=== PATIENT | female | born 1935 | race Caucasian/White ===

== ENCOUNTER 2019-05-09 07:01 | Inpatient (IN) ==
[2019-05-09] MEDS ORDERED: DILTIAZEM 25 MG/5 ML VIAL IV ONE (07:21)
--- NOTE | 2019-05-09 07:26 | Emergency Department Note ---
Weakness HPI - General Chief complaint: Weakness Stated complaint: weaknesss Time Seen by Provider: 05/09/19 07:16 Source: patient Mode of arrival: wheelchair Limitations: no limitations - History of Present Illness HPI Narrative: This is a dialysis patient who was on her way to dialysis and going up the car she just felt very weak and kind of slumped down. She is found to be in atrial fib with RVR ordered with a rate of 140-150. She was admitted to the hospital in [place] last week with similar symptoms. She denies chest pain or shortness of breath no nausea vomiting or abdominal pain. - Related Data Home Medications Medication Instructions Recorded Confirmed docusate sodium 100 mg capsule 100 mg PO BID 02/15/18 05/09/19 ranitidine HCl 300 mg tablet 150 mg PO BID tab 11/09/18 05/09/19 glimepiride 1 mg tablet 1 mg PO BID tab 03/21/19 05/09/19 sertraline 50 mg tablet 25 mg PO QDAY tab 05/04/19 05/09/19 Acetaminophen [Tylenol] 500 mg PO Q6HP PRN 05/05/19 05/09/19 Diltiazem [Cardizem Cd] 120 mg PO DAILY 05/05/19 05/09/19 Valsartan 320 mg PO QHS 05/05/19 05/09/19 Vit C/Vit E AC/Lut/Copper/Zinc 1 cap PO BID 05/05/19 05/09/19 [Preservision Lutein Softgel] Previous Rx's Medication Instructions Recorded doxazosin 8 mg tablet 8 mg PO QHS #30 tab 03/21/19 pen needle, diabetic 31 gauge x See Rx Instructions .ROUTE 04/06/1908/26" .MEDSUPPLY #100 each insulin detemir U-100 100 unit/mL 7 unit SUB-Q QAM #15 ml 04/18/19 (3 mL) subcutaneous pen gabapentin 100 mg capsule 100 mg PO QHS #90 cap 05/04/19 Ondansetron [Zofran ODT] 4 mg SL Q4-6HP PRN #10 tab 05/05/19 Allergies Allergy/AdvReac Type Severity Reaction Status Date / Time Amoxicillin Allergy Unknown Unknown Verified 05/09/19 07:05 acetazolamide Allergy decreases Verified 05/09/19 07:05 kidney fxn fentanyl AdvReac Hallucinati Verified 05/09/19 07:05 ng morphine Sulfate Allergy Unknown Unknown Uncoded 04/18/19 14:27 other Food Allergies Allergy Unknown Unknown Uncoded 04/18/19 14:27 Review of Systems All systems ED: reviewed and negative except as stated. 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) group home use of drug (Acute) Renal insufficiency (Acute 02/23/12) Rectal cancer (Acute) Proteinuria (Acute) Hypoalbuminemia (Acute) History of kidney stones (Acute 05/09/12) Hypopotassemia (Acute) Hypertension, renal disease (Chronic) Upper respiratory infection (Acute) Hypertension, essential (Acute 05/08/12) Hyperlipidemia (Acute 05/08/12) Homocystinemia (Acute) Disturbance of skin sensation (Acute) Diabetes mellitus, type II (Chronic) Chronic kidney disease, stage III (moderate) (Chronic 05/08/12) Vitamin D deficiency (Acute) Anemia, iron deficiency (Acute 07/31/12) Anemia in chronic kidney disease (Acute 05/08/12) Past Surgical History (Last Reviewed 04/18/19 @ 14:38 by Edis Sethi MD) History of hip surgery (Acute) History of hysterectomy (Acute) History of inguinal hernia repair (Acute) History of dilation and curettage (Acute) Family History (Last Reviewed 04/18/19 @ 14:38 by Edis Sethi MD) mother Malignant neoplasm of breast Medical history: Reports: renal disease - Social History smoking status: Never smoker Physical Exam Limitations: no limitations General appearance: alert Head: atraumatic Eye: Present: normal appearance ENT: Present: normal exam Neck: Present: normal inspection Chest: Present: normal inspection Respiratory: Present: rales/crackles Cardiovascular: Present: tachycardia, normal heart sounds Abdominal: Present: soft. Absent: distention, tenderness Extremities: Absent: pedal edema, pretibial edema Neurological: Present: alert Psychiatric: Present: normal affect Skin: Present: warm, dry Course Vital Signs Temperature 96.3 F L 05/09/19 07:01 Pulse Rate 143 H 05/09/19 07:01 Respiratory Rate 18 05/09/19 07:01 Blood Pressure 153/72 05/09/19 07:01 Pulse Oximetry (%) 99 05/09/19 07:01 Temperature 96.3 F L 05/09/19 07:01 Pulse Rate 92 H 05/09/19 08:01 Respiratory Rate 18 05/09/19 08:01 Blood Pressure 137/76 05/09/19 08:01 Pulse Oximetry (%) 96 05/09/19 08:01 Weakness - MDM Narrative Medical decision making narrative: This patient will be admitted to the hospital for atrial fibrillation are. I have spoken with the meat service team member but I am waiting to speak to the hospitalist. We did start diltiazem and her heart rate has come down some. - Lab Data Lab results reviewed: Yes I reviewed the patient's lab results. Result diagrams: 05/09/19 07:18 05/09/19 07:18 Lab Results 05/09/19 05/09/19 05/09/19 Range/Units 07:18 07:18 07:18 WBC 9.8 (4.5-11.0) K/mcL RBC 2.82 L (4.00-5.20) M/mcL Hgb 7.9 L (12.0-15.0) g/dL Hct 24.7 L (36.0-48.0) % POC Hct 23.0 L (36.0-48.0) % MCV 87.5 (80.0-100.0) fL MCH 28.0 (26.0-34.0) pg MCHC 32.0 (31.0-36.0) g/dL RDW 16.9 H (11.5-14.5) % Plt Count 217 (140-440) K/mcL MPV 7.8 (7.4-10.4) fL Gran % 70.3 (38.0-78.0) % Lymph % (Auto) 21.1 (15.5-49.0) % [place] % (Auto) 6.4 (1.0-12.0) % Eos % (Auto) 1.9 (0.0-7.0) % Baso % (Auto) 0.3 (0.0-2.0) % Gran # 6.9 (1.8-8.0) K/mcL Lymph # (Auto) 2.1 (1.5-4.8) K/mcL [place] # (Auto) 0.6 (0.1-0.9) K/mcL Eos # (Auto) 0.2 (0.0-0.7) K/mcL Baso # (Auto) 0 (0.0-0.3) K/mcL POC Sodium 137 (133-145) mmol/L Sodium 139 (133-145) mmol/L POC Potassium 3.5 (3.3-5.1) mmol/L Potassium 3.6 (3.3-5.1) mmol/L POC Chloride 101 (96-108) mmol/L Chloride 97 (96-108) mmol/L Carbon Dioxide 22 (22-30) mmol/L POC Total CO2 24 (22-30) mmol/L Anion Gap 20.0 H (8-16) POC BUN 23 (8-23) mg/dl BUN 25 H (8-23) mg/dl Creatinine 4.2 H (0.6-1.1) mg/dl POC Creatinine 4.6 H (0.6-1.1) mg/dl GFR Calculation 9 Glucose 179 H (70-105) mg/dL POC Glucose 175 H (70-105) mg/dL Calcium 8.8 (8.6-10.4) mg/dl POC WB Ioniz Calcium 1.06 L (1.16-1.32) mmol/L Total Bilirubin 0.3 (0.0-1.0) mg/dL AST 20 (0-37) U/l ALT 10 (0-40) U/l Alkaline Phosphatase 74 (39-117) U/L Troponin T 0.07 H* (0-0.03) ng/ml Total Protein 6.4 (5.9-8.4) gm/dL Albumin 3.4 (3.2-5.2) gm/dL Globulin 3.0 (2.2-3.7) gm/dL Albumin/Globulin Ratio 1.1 (1.0-2.3) Urine Color Urine Appearance Urine pH (5.0-9.0) Ur Specific [place] (1.000-1.035) Urine Protein (NEG) mg/dL Urine Glucose (UA) (NEG) mg/dL Urine Ketones (NEG) mg/dL Urine Occult Blood (<0.03) mg/dL Urine Nitrate (NEG) Urine Bilirubin (NEG) mg/dL Urine Urobilinogen (NEG) mg/dL Ur Leukocyte Esterase (NEG) /uL Urine RBC (0-1) /hpf Urine WBC (0-4) /hpf Ur Squamous Epith Cells (0-4) /hpf Ur Transition Epith Cell (0-2) /hpf Urine Bacteria (0) /hpf Hyaline Casts (0-2) /lpf Urine Mucus (0) /hpf Ur Culture Indicated? 05/09/19 Range/Units 07:57 WBC (4.5-11.0) K/mcL RBC (4.00-5.20) M/mcL Hgb (12.0-15.0) g/dL Hct (36.0-48.0) % POC Hct (36.0-48.0) % MCV (80.0-100.0) fL MCH (26.0-34.0) pg MCHC (31.0-36.0) g/dL RDW (11.5-14.5) % Plt Count (140-440) K/mcL MPV (7.4-10.4) fL Gran % (38.0-78.0) % Lymph % (Auto) (15.5-49.0) % [place] % (Auto) (1.0-12.0) % Eos % (Auto) (0.0-7.0) % Baso % (Auto) (0.0-2.0) % Gran # (1.8-8.0) K/mcL Lymph # (Auto) (1.5-4.8) K/mcL [place] # (Auto) (0.1-0.9) K/mcL Eos # (Auto) (0.0-0.7) K/mcL Baso # (Auto) (0.0-0.3) K/mcL POC Sodium (133-145) mmol/L Sodium (133-145) mmol/L POC Potassium (3.3-5.1) mmol/L Potassium (3.3-5.1) mmol/L POC Chloride (96-108) mmol/L Chloride (96-108) mmol/L Carbon Dioxide (22-30) mmol/L POC Total CO2 (22-30) mmol/L Anion Gap (8-16) POC BUN (8-23) mg/dl BUN (8-23) mg/dl Creatinine (0.6-1.1) mg/dl POC Creatinine (0.6-1.1) mg/dl GFR Calculation Glucose (70-105) mg/dL POC Glucose (70-105) mg/dL Calcium (8.6-10.4) mg/dl POC WB Ioniz Calcium (1.16-1.32) mmol/L Total Bilirubin (0.0-1.0) mg/dL AST (0-37) U/l ALT (0-40) U/l Alkaline Phosphatase (39-117) U/L Troponin T (0-0.03) ng/ml Total Protein (5.9-8.4) gm/dL Albumin (3.2-5.2) gm/dL Globulin (2.2-3.7) gm/dL Albumin/Globulin Ratio (1.0-2.3) Urine Color Yellow Urine Appearance Clear Urine pH 7.0 (5.0-9.0) Ur Specific [place] 1.013 (1.000-1.035) Urine Protein >=500 A (NEG) mg/dL Urine Glucose (UA) 50 A (NEG) mg/dL Urine Ketones 5/tr A (NEG) mg/dL Urine Occult Blood Neg (<0.03) mg/dL Urine Nitrate Neg (NEG) Urine Bilirubin Neg (NEG) mg/dL Urine Urobilinogen Neg (NEG) mg/dL Ur Leukocyte Esterase Neg (NEG) /uL Urine RBC 1 (0-1) /hpf Urine WBC 9 H (0-4) /hpf Ur Squamous Epith Cells 0 (0-4) /hpf Ur Transition Epith Cell < 1 (0-2) /hpf Urine Bacteria 0 (0) /hpf Hyaline Casts 3 H (0-2) /lpf Urine Mucus Few (0) /hpf Ur Culture Indicated? No Disposition Pt seen by [facility] ROOM CASHIER/PA only: No Clinical Impression: Atrial fibrillation with RVR Disposition: Xfer As Inpt ([facility]) Condition: Good Referrals: Rubina White MD [Primary Care Provider] - Time of Disposition: 09:03
[2019-05-09 07:27] LABS: POC Blood Urea Nitrogen 23 mg/dl (8-23); POC CO2 24 mmol/L (22-30); POC Calcium, Ionized 1.06 mmol/L (1.16-1.32); POC Chloride 101 mmol/L (96-108); POC Creatinine 4.6 mg/dl (0.6-1.1); POC Glucose, Random 175 mg/dL (70-105); POC Potassium 3.5 mmol/L (3.3-5.1); POC Sodium 137 mmol/L (133-145)
[2019-05-09] MEDS ORDERED: DILTIAZEM 125 MG in DEXTROSE 5% IN WATER 100 ML IV SCH (07:30)
[2019-05-09 07:46] LABS: Basophils # (Auto) 0 K/mcL (0.0-0.3); Basophils % (Auto) 0.3 % (0.0-2.0); Eosinophils # (Auto) 0.2 K/mcL (0.0-0.7); Eosinophils % (Auto) 1.9 % (0.0-7.0); Granulocytes % (Auto) 70.3 % (38.0-78.0); Hematocrit 24.7 % (36.0-48.0); Hemoglobin 7.9 g/dL (12.0-15.0); Lymphocytes # (Auto) 2.1 K/mcL (1.5-4.8); Lymphocytes % (Auto) 21.1 % (15.5-49.0); Mean Cell Volume 87.5 fL (80.0-100.0); Mean Platelet Volume 7.8 fL (7.4-10.4); Monocytes # (Auto) 0.6 K/mcL (0.1-0.9); Monocytes % (Auto) 6.4 % (1.0-12.0); Platelet Count 217 K/mcL (140-440); RBC 2.82 M/mcL (4.00-5.20); Red Cell Distribution Width 16.9 % (11.5-14.5); WBC 9.8 K/mcL (4.5-11.0)
[2019-05-09 08:10] LABS: ALT/SGPT 10 U/l (0-40); AST/SGOT 20 U/l (0-37); Albumin 3.4 gm/dL (3.2-5.2); Albumin/Globulin Ratio 1.1 (1.0-2.3); Alkaline Phosphatase 74 U/L (39-117); Bilirubin,Total 0.3 mg/dL (0.0-1.0); Blood Urea Nitrogen 25 mg/dl (8-23); Calcium 8.8 mg/dl (8.6-10.4); Carbon Dioxide 22 mmol/L (22-30); Chloride 97 mmol/L (96-108); Glomerular Filtration Rate 9; Glucose 179 mg/dL (70-105)
[2019-05-09 08:43] LABS: Appearance,Urine CLEAR; Bacteria,Urine 0 /hpf (0); Bilirubin,Urine NEG (NEG); Color,Urine YELLOW; Culture Indicated,Urine NO; Glucose,Urine (UA) 50 mg/dL (NEG); Ketones,Urine 5/TR mg/dL (NEG); Leukocyte Esterase,Urine NEG /uL (NEG); Mucus,Urine FEW /hpf (0); Nitrate,Urine NEG (NEG); Protein,Urine >=500 mg/dL (NEG); Specific Gravity,Urine 1.013 (1.000-1.035); Urine Blood NEG mg/dL (<0.03); Urine Hyaline Cast 3 /lpf (0-2); Urine RBC 1 /hpf (0-1); Urine Squamous Epithelial Cell 0 /hpf (0-4); Urine Transitional Epi Cells < 1 /hpf (0-2); Urine WBC 9 /hpf (0-4); Urobilinogen,Urine NEG (NEG)
[2019-05-09] MEDS ORDERED: POTASSIUM CHLORIDE 20 MEQ PACKET PO PRN (09:19)
[2019-05-09] MEDS ORDERED: ACETAMINOPHEN 325 MG TABLET PO PRN (09:19)
[2019-05-09] MEDS ORDERED: POLYETHYLENE GLYCOL 3350 17 GM PACKET PO PRN (09:19)
[2019-05-09] MEDS ORDERED: DEXTROSE 31 GM ORAL.SUSP PO PRN (09:19)
[2019-05-09] MEDS ORDERED: MAGNESIUM SULFATE 2 GM/50 ML BAG IV PRN (09:19)
[2019-05-09] MEDS ORDERED: ONDANSETRON 4 MG/2 ML VIAL IV PRN (09:19)
[2019-05-09] MEDS ORDERED: DEXTROSE 50% 50 ML VIAL IV PRN (09:19)
--- NOTE | 2019-05-09 10:06 | Nephrology Consult Note ---
History of Present Illness - Reason for Consult Patient information: Note initiated : 05/09/19 at 10:04 am Patient: Elvia Garcia a 84 y/o F admitted on 05/09/19 for Weakness. Consult date: 05/09/19 end stage renal disease Requesting physician: Jamel Donovan - Chief Complaint Weakness - History of Present Illness Elvia Garcia is an 84-year-old female with end stage renal disease on chronic hemodialysis presented to [facility] ED for weakness and admitted to on 05/09/19 for atrial fibrillation with RVR. She felt very weak on her way to dialysis and slumped down. She is found to be in atrial fibrillation with RVR with a rate of 140-150. She was already converted to sinus rhythm at the time of my evaluation in ICU. She had difficulty with history. Her daughter was at bedside and helped. 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) [facility] use of drug (Acute) Renal insufficiency (Acute 02/23/12) Rectal cancer (Acute) Proteinuria (Acute) Hypoalbuminemia (Acute) History of kidney stones (Acute 05/09/12) Hypopotassemia (Acute) Hypertension, renal disease (Chronic) Upper respiratory infection (Acute) Hypertension, essential (Acute 05/08/12) Hyperlipidemia (Acute 05/08/12) Homocystinemia (Acute) Disturbance of skin sensation (Acute) Diabetes mellitus, type II (Chronic) Chronic kidney disease, stage III (moderate) (Chronic 05/08/12) Vitamin D deficiency (Acute) Anemia, iron deficiency (Acute 07/31/12) Anemia in chronic kidney disease (Acute 05/08/12) Past surgical history: Past Surgical History (Last Reviewed 04/18/19 @ 14:38 by Edis Sethi MD) History of hip surgery (Acute) History of hysterectomy (Acute) History of inguinal hernia repair (Acute) History of dilation and curettage (Acute) Past family history: Family History (Last Reviewed 04/18/19 @ 14:38 by Edis Sethi MD) mother Malignant neoplasm of breast Past social history: Social History (Updated 04/18/19 @ 18:56 by Edis Sethi MD) marital status: occupational status: retired occupation: teacher other: 3 daughters 1 son, who at the age of 47 following MVA,he had aids smoking status: Never smoker alcohol intake frequency: does not drink Medications and Allergies Home Medications Medication Instructions Recorded Confirmed Type docusate sodium 100 mg capsule 100 mg PO BID 02/15/18 05/09/19 History ranitidine HCl 300 mg tablet 150 mg PO BID tab 11/09/18 05/09/19 History doxazosin 8 mg tablet 8 mg PO QHS #30 tab 03/21/19 05/09/19 Rx glimepiride 1 mg tablet 1 mg PO BID tab 03/21/19 05/09/19 History pen needle, diabetic 31 gauge x See Rx Instructions .ROUTE 04/06/19 05/09/19 Rx 3/16" .MEDSUPPLY #100 each insulin detemir U-100 100 unit/mL 7 unit SUB-Q QAM #15 ml 04/18/19 05/09/19 Rx (3 mL) subcutaneous pen gabapentin 100 mg capsule 100 mg PO QHS #90 cap 05/04/19 05/09/19 Rx sertraline 50 mg tablet 25 mg PO QDAY tab 05/04/19 05/09/19 History Acetaminophen [Tylenol] 500 mg PO Q6HP PRN 05/05/19 05/09/19 History Diltiazem [Cardizem Cd] 120 mg PO DAILY 05/05/19 05/09/19 History Ondansetron [Zofran ODT] 4 mg SL Q4-6HP PRN #10 tab 05/05/19 05/09/19 Rx Valsartan 320 mg PO QHS 05/05/19 05/09/19 History Vit C/Vit E AC/Lut/Copper/Zinc 1 cap PO BID 05/05/19 05/09/19 History [Preservision Lutein Softgel] Allergies Allergy/AdvReac Type Severity Reaction Status Date / Time Amoxicillin Allergy Unknown Unknown Verified 05/09/19 07:05 acetazolamide Allergy decreases Verified 05/09/19 07:05 kidney fxn fentanyl AdvReac Hallucinati Verified 05/09/19 07:05 ng morphine Sulfate Allergy Unknown Unknown Uncoded 04/18/19 14:27 other Food Allergies Allergy Unknown Unknown Uncoded 04/18/19 14:27 Exam - Vital Signs Vital signs: Temp Pulse Resp BP Pulse Ox 96.3 F L 92 H 20 125/87 96 05/09/19 07:01 05/09/19 08:01 05/09/19 09:01 05/09/19 09:16 05/09/19 08:01 - General Appearance General appearance: appears started age, chronically ill, fatigue EENT: mucous membranes moist Neck: supple Respiratory: clear Cardiology: no edema, regular rate, regular rhythm Gastrointestinal: no tenderness Integumentary: warm and dry Neurologic: no focal deficit Musculoskeletal: no deformities Psychiatric: mood/affect appropriate, cooperative Results - Lab Results 05/09/19 07:18 05/09/19 07:18 Most recent lab results Calcium 8.8 mg/dl (8.6-10.4) 05/09/19 07:18 Assessment and Plan (1) ESRD (end stage renal disease) on dialysis End stage renal disease on chronic hemodialysis. Chronic anemia due to ESRD, receiving Aranesp and IV iron in the dialysis unit. Recent left arm AV fistula. No significant fluid overload. Recurrent atrial fibrillation with RVR. Plan: Hemodialysis today for 3 hours without UF with low flows. Status: Chronic Priority: Medium
[2019-05-09] MEDS ORDERED: ACETAMINOPHEN 500 MG TABLET PO PRN (10:15)
[2019-05-09] MEDS ORDERED: DILTIAZEM 120 MG CAP.XL.24H PO SCH (10:15)
[2019-05-09] MEDS ORDERED: ONDANSETRON 4 MG ODT TABLET SL PRN (10:15)
--- NOTE | 2019-05-09 10:15 | Internal Med History&Physical ---
Medical - H&P: HPI Patient information: Note initiated : 05/09/19 at 10:12 am Service Date, if different from initiated Date: [] Patient: Elvia Garcia a 84 y/o F admitted on 05/09/19 for Weaknesss. Chief Complaint: [] Chief complaint: Lightheadedness dizziness History of present illness: Ms. Garcia is a 84 year old F with a history of ESRD on HD/A. fib and recent hospitalization at [facility] for A. fib RVR that spontaneously converted to sinus. Patient has been doing well since discharge until this morning while on the way to dialysis she was noted to be very weak lightheaded and dizzy and had a near syncopal episode. She was brought into the ER for evaluation and was found to be in A. fib RVR. Patient started on diltiazem drip. Nephrology was consulted for hemodialysis. Hospice service was consulted for evaluation. At the time of evaluation patient is alert and oriented. She is able to answer most questions. She denies any precipitating events. She has had a similar episode. She gets extreme symptomatic during atrial fibrillation episode. She denies fever, chills or [id number] medications. She however has been various antihypertensives currently being titrated by nephrology. She takes 120 diltiazem CD along with valsartan and doxazosin for hypertension. She is not on anticoagulation for CVA prophylaxis. Other than that patient denies diarrhea, dysuria, headache photophobia. 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 However, the is a monoclonal kappa spike seen on immunofixation. Also concern for late recurrence of colon cancer. Her M spike was only 0.6 g/dL, there is been a slowly rising trend in her CEA with a doubling over the past year but still less than 10, and her hemoglobin A1c is consistently been below 7% [facility] use of drug (Acute) petroleum terminal plant operator medication use NOS Renal insufficiency (Acute 02/23/12) Rectal cancer (Acute) Rectosigmoid Carcinoma Proteinuria (Acute) Hypoalbuminemia (Acute) History of kidney stones (Acute 05/09/12) Hypopotassemia (Acute) Hypertension, renal disease (Chronic) Upper respiratory infection (Acute) Hypertension, essential (Acute 05/08/12) Hyperlipidemia (Acute 05/08/12) Homocystinemia (Acute) Disturbance of skin sensation (Acute) numbness or tingling or other Diabetes mellitus, type II (Chronic) Chronic kidney disease, stage III (moderate) (Chronic 05/08/12) Vitamin D deficiency (Acute) Anemia, iron deficiency (Acute 07/31/12) Anemia in chronic kidney disease (Acute 05/08/12) Surgical History History of hip surgery (Acute) January 2012 Hip fracture for which she had a dynamic hip screw place by DR Ramirez History of hysterectomy (Acute) still has ovaries History of inguinal hernia repair (Acute) 2007 History of dilation and curettage (Acute) Family History mother Malignant neoplasm of breast Social History marital status: occupational status: retired occupation: teacher other: 3 daughters 1 son, who at the age of 47 following MVA,he had aids smoking status: Never smoker alcohol intake frequency: does not drink Medical - H&P: Meds Home Medications Medication Instructions Recorded Confirmed Type docusate sodium 100 mg capsule 100 mg PO BID 02/15/18 05/09/19 History ranitidine HCl 300 mg tablet 150 mg PO BID tab 11/09/18 05/09/19 History doxazosin 8 mg tablet 8 mg PO QHS #30 tab 03/21/19 05/09/19 Rx glimepiride 1 mg tablet 1 mg PO BID tab 03/21/19 05/09/19 History pen needle, diabetic 31 gauge x See Rx Instructions .ROUTE 04/06/19 05/09/19 Rx 3/16" .MEDSUPPLY #100 each insulin detemir U-100 100 unit/mL 7 unit SUB-Q QAM #15 ml 04/18/19 05/09/19 Rx (3 mL) subcutaneous pen gabapentin 100 mg capsule 100 mg PO QHS #90 cap 05/04/19 05/09/19 Rx sertraline 50 mg tablet 25 mg PO QDAY tab 05/04/19 05/09/19 History Acetaminophen [Tylenol] 500 mg PO Q6HP PRN 05/05/19 05/09/19 History Diltiazem [Cardizem Cd] 120 mg PO DAILY 05/05/19 05/09/19 History Ondansetron [Zofran ODT] 4 mg SL Q4-6HP PRN #10 tab 05/05/19 05/09/19 Rx Valsartan 320 mg PO QHS 05/05/19 05/09/19 History Vit C/Vit E AC/Lut/Copper/Zinc 1 cap PO BID 05/05/19 05/09/19 History [Preservision Lutein Softgel] Allergies Allergy/AdvReac Type Severity Reaction Status Date / Time Amoxicillin Allergy Unknown Unknown Verified 05/09/19 07:05 acetazolamide Allergy decreases Verified 05/09/19 07:05 kidney fxn fentanyl AdvReac Hallucinati Verified 05/09/19 07:05 ng other Food Allergies Allergy Unknown Unknown Uncoded 04/18/19 14:27 morphine Sulfate AdvReac Intermediate Hallucinati Uncoded 05/09/19 12:15 ng Medical - H&P: Exam - Constitutional Vitals: Temp Pulse Resp BP Pulse Ox 96.3 F L 92 H 20 125/87 96 05/09/19 07:01 05/09/19 08:01 05/09/19 09:01 05/09/19 09:16 05/09/19 08:01 Exam: Alert oriented Nonlabored breathing Head normocephalic Oral cavity dry No ear nose discharge Eye movement symmetrical S1-S2 irregular rhythm Diminished breath sounds bases Abdomen soft nontender, colostomy Lower extremity no cyanosis clubbing no joint swelling Skin no suspicious lesion Psych alert cooperative Neuro nonfocal Medical - H&P: Reslt - Labs CBC & Chem 7: 05/10/19 04:10 05/10/19 04:10 Labs: Short CBC 05/09/19 Range/Units 07:18 WBC 9.8 (4.5-11.0) K/mcL Hgb 7.9 L (12.0-15.0) g/dL Hct 24.7 L (36.0-48.0) % Plt Count 217 (140-440) K/mcL BMP 05/09/19 07:18 Sodium 139 Potassium 3.6 Chloride 97 Carbon Dioxide 22 BUN 25 H Creatinine 4.2 H Glucose 179 H Calcium 8.8 Cardiac Enzymes 05/09/19 Range/Units 07:18 Troponin T 0.07 H* (0-0.03) ng/ml Liver Function 05/09/19 Range/Units 07:18 Total Bilirubin 0.3 (0.0-1.0) mg/dL AST 20 (0-37) U/l ALT 10 (0-40) U/l Alkaline Phosphatase 74 (39-117) U/L Albumin 3.4 (3.2-5.2) gm/dL Urine 05/09/19 Range/Units 07:57 Urine Color Yellow Urine Appearance Clear Urine pH 7.0 (5.0-9.0) Ur Specific [place] 1.013 (1.000-1.035) Urine Protein >=500 A (NEG) mg/dL Urine Glucose (UA) 50 A (NEG) mg/dL Medical - H&P: A/P - Narrative A/P Narrative: * A. fib with RVR paroxysmal-continue rate control measures, continue diltiazem drip and transition to higher dose of diltiazem extended release. Echocardiogram * ESRD on hemodialysis -nephrology consult for HD * DM type II-basal prandial insulin * Hypertension-continue ARB/diltiazem/doxazosin * Anemia-secondary to ESRD. Management nephrology * Anxiety disorder continue sertraline * Hyperlipidemia continue statin * Neuropathy continue gabapentin * GERD continue PPI * Full code * Prophylaxis heparin Plan * Inpatient admission * Rate control measures * Echocardiogram * Pre-existing medical condition management on home meds * Nephrology consult for HD/anemia * PT OT nutrition support * Discharge planning
[2019-05-09] MEDS: DILTIAZEM 120 MG CAP.XL.24H PO SCH (11:00)
[2019-05-09] MEDS: THIAMINE 100 MG TABLET PO SCH (11:20)
[2019-05-09] MEDS: MULTIVIT,THER IRON,CA,FA & MIN 1 TABLET PO SCH (11:20)
[2019-05-09] MEDS: HEPARIN 5,000 UNIT/ML VIAL SQ SCH ×2 (11:21→20:52)
[2019-05-09] MEDS: DOCUSATE SODIUM 100 MG CAPSULE PO SCH ×2 (11:22→20:52)
[2019-05-09] MEDS: METOPROLOL TARTRATE 5 MG/5 ML VIAL IV SCH ×2 (11:22→17:30)
[2019-05-09] MEDS: INSULIN LISPRO 1 UNIT/0.01 ML UNIT SQ SCH ×3 (13:50→20:52)
[2019-05-09] MEDS ORDERED: METOPROLOL TARTRATE 5 MG/5 ML VIAL IV PRN (16:49)
[2019-05-09] MEDS: 0.9 % SODIUM CHLORIDE 10 ML SYRINGE IV SCH ×2 (17:24→20:53)
[2019-05-09] MEDS ORDERED: METOPROLOL TARTRATE 5 MG/5 ML VIAL IV SCH ×2 (17:30→17:45)
[2019-05-09] MEDS ORDERED: DILTIAZEM 125 MG in DEXTROSE 5% IN WATER 100 ML IV PRN (19:30)
[2019-05-09] MEDS: FAMOTIDINE 20 MG TABLET PO SCH (20:52)
[2019-05-09] MEDS ORDERED: DOXAZOSIN 4 MG TABLET PO SCH (21:00)
[2019-05-09] MEDS ORDERED: GABAPENTIN 100 MG CAPSULE PO SCH (21:00)
[2019-05-09] MEDS ORDERED: DOCUSATE SODIUM 100 MG CAPSULE PO SCH (21:00)
[2019-05-09] MEDS ORDERED: OLMESARTAN MEDOXOMIL 20 MG TABLET PO SCH (21:00)
[2019-05-09] MEDS ORDERED: MELATONIN 3 MG TABLET PO PRN (21:00)
[2019-05-09] MEDS ORDERED: SENNOSIDES/DOCUSATE SODIUM 1 TAB TABLET PO SCH (21:00)
[2019-05-10] MEDS: 0.9 % SODIUM CHLORIDE 10 ML SYRINGE IV SCH ×2 (05:50→12:14)
[2019-05-10 05:54] LABS: ALT/SGPT 9 U/l (0-40); AST/SGOT 20 U/l (0-37); Albumin/Globulin Ratio 1.2 (1.0-2.3); Alkaline Phosphatase 74 U/L (39-117); Bilirubin,Direct < 0.2 mg/dL (0.0-0.3); Bilirubin,Total 0.2 mg/dL (0.0-1.0); Carbon Dioxide 27 mmol/L (22-30); Chloride 98 mmol/L (96-108); Globulin 2.6 gm/dL (2.2-3.7); Glucose 118 mg/dL (70-105); Lactate Dehydrogenase 188 U/L (94-250); Phosphorous 3.8 mg/dL (2.7-4.5); Triglycerides 249 mg/dl (<150)
[2019-05-10 05:59] LABS: Blood Urea Nitrogen 14 mg/dl (8-23); Glomerular Filtration Rate 14; Hematocrit 20.4 % (36.0-48.0); Hemoglobin 6.6 g/dL (12.0-15.0); Mean Cell Volume 87.4 fL (80.0-100.0); Mean Corpuscular HGB Conc 32.3 g/dL (31.0-36.0); Mean Platelet Volume 7.8 fL (7.4-10.4); Platelet Count 193 K/mcL (140-440); RBC 2.33 M/mcL (4.00-5.20); Red Cell Distribution Width 16.7 % (11.5-14.5); WBC 6.2 K/mcL (4.5-11.0)
[2019-05-10 06:42] LABS: Eosinophils % (Manual) 4 % (0-7); Lymphocytes % 20 % (15-49); Monocytes % (Manual) 6 % (1-12); Platelet Estimate NORMAL (NORMAL); RBC Morphology NORMAL (NORMAL); Segmented Neutrophils % 70 % (38-78)
--- NOTE | 2019-05-10 07:30 | Nephrology Progress Note ---
Subjective Patient information: Note initiated : 05/10/19 at 7:28 am Patient: Elvia Garcia 84 y/o F admitted on 05/09/19 for Weaknesss. Chief Complaint: Weakness Pertinent ROS: Weakness No Gómez catheter No edema Objective - Vital Signs Vital signs: Vital Signs Temp Pulse Pulse Resp BP BP Pulse Ox 05/10/19 04:29 68 97 05/10/19 04:01 98.1 F 65 116/41 98 05/10/19 03:01 66 115/41 98 05/10/19 02:48 70 99 05/10/19 02:01 65 132/46 98 05/10/19 02:00 99 05/10/19 01:01 75 150/50 92 05/10/19 00:01 78 150/59 93 05/09/19 23:01 79 151/54 94 05/09/19 22:01 79 153/53 94 05/09/19 21:01 155/62 05/09/19 20:01 98.2 F 82 18 142/58 95 05/09/19 20:00 96 05/09/19 19:01 89 151/68 96 05/09/19 18:01 98.4 F 88 148/47 97 05/09/19 18:00 88 96 05/09/19 17:01 80 168/66 94 05/09/19 16:39 79 165/61 93 05/09/19 16:16 98.4 F 84 163/64 98 05/09/19 16:01 86 185/73 95 05/09/19 15:51 81 165/66 96 05/09/19 15:50 79 165/60 96 05/09/19 15:45 77 139/59 97 05/09/19 15:35 96.6 F L 75 139/59 05/09/19 15:31 78 141/62 96 05/09/19 15:25 76 141/62 05/09/19 15:16 85 154/50 97 05/09/19 15:14 84 154/50 05/09/19 15:01 85 163/58 97 05/09/19 14:56 90 163/58 05/09/19 14:46 81 159/74 96 05/09/19 14:39 81 159/74 05/09/19 14:31 80 163/73 96 05/09/19 14:25 89 163/73 05/09/19 14:16 78 150/67 95 05/09/19 14:15 88 20 97 05/09/19 14:12 81 150/67 05/09/19 14:10 80 95 05/09/19 14:01 80 156/65 94 05/09/19 13:57 80 156/66 05/09/19 13:46 75 158/59 95 05/09/19 13:41 77 158/59 05/09/19 13:31 77 158/61 94 05/09/19 13:25 74 158/75 05/09/19 13:16 82 181/72 96 05/09/19 13:10 80 181/72 05/09/19 13:01 83 177/65 97 05/09/19 13:00 83 177/65 05/09/19 12:46 77 147/55 97 05/09/19 12:40 98.6 F 83 145/55 05/09/19 12:31 82 159/57 96 05/09/19 12:16 80 167/68 96 05/09/19 12:01 80 173/60 98 05/09/19 11:46 86 150/64 96 05/09/19 11:31 81 150/85 96 05/09/19 11:16 74 164/52 99 05/09/19 11:15 75 96 05/09/19 11:00 74 141/51 95 05/09/19 10:46 73 104/82 97 05/09/19 10:31 76 146/55 95 05/09/19 10:16 82 155/55 96 05/09/19 10:01 81 151/63 96 05/09/19 09:46 87 142/53 96 05/09/19 09:36 150/67 05/09/19 09:26 125/87 05/09/19 09:17 98.2 F 88 20 150/67 96 05/09/19 09:16 125/87 05/09/19 09:01 20 109/56 05/09/19 08:46 14 135/68 05/09/19 08:31 17 124/48 05/09/19 08:16 21 126/105 05/09/19 08:01 92 H 18 137/76 96 05/09/19 07:52 130 H 16 144/81 97 Intake and Output 05/09/19 05/10/19 05/10/19 21:59 05:59 13:59 Intake Total 480 Output Total 250 Balance -250 480 Intake: Oral 480 Output: Void Amount 250 Hemodialysis UF 0 Other: Urine Appearance Cloudy Urine Color Dark Yellow Stool Color Brown Stool Consistency Liquid Weight 119 lb 8 oz Intake & Output: Intake & Output 05/09/19 05/10/19 05/10/19 21:59 05:59 13:59 Intake Total 480 Output Total 250 Balance -250 480 Weight 119 lb 8 oz Intake: Oral 480 Output: Void Amount 250 Hemodialysis UF 0 Other: Urine Appearance Cloudy Urine Color Dark Yellow Stool Color Brown Stool Consistency Liquid - General Appearance General appearance: appears started age, chronically ill, fatigue, frail EENT: mucous membranes moist Respiratory: clear Cardiology: no edema, regular rate, regular rhythm Gastrointestinal: no tenderness Integumentary: warm and dry Neurologic: no focal deficit Musculoskeletal: no deformities Psychiatric: mood/affect appropriate, cooperative - Lab 05/10/19 04:10 05/10/19 04:10 Most recent lab results Calcium 8.0 mg/dl (8.6-10.4) L 05/10/19 04:10 Phosphorus 3.8 mg/dL (2.7-4.5) 05/10/19 04:10 Magnesium 2.0 mg/dL (1.6-2.5) 05/10/19 04:10 Assessment and Plan (1) ESRD (end stage renal disease) on dialysis Elvia Garcia is an 84-year-old female with end stage renal disease on chronic hemodialysis presented to [facility] ED for weakness and admitted to on 05/09/19 for atrial fibrillation with RVR. She felt very weak on her way to dialysis and slumped down. She is found to be in atrial fibrillation with RVR with a rate of 140-150. She was already converted to sinus rhythm at the time of my evaluation in ICU. She had difficulty with history. Her daughter was at bedside and helped. End stage renal disease on chronic hemodialysis, started this month. Chronic anemia due to ESRD, receiving Aranesp and IV iron in the dialysis unit. Recent left arm AV fistula. Progress: Last hemodialysis on 05/09/19 for 3 hours without UF with low flows. Recurrent atrial fibrillation with RVR, converted to sinus rhythm. No significant fluid overload. Plan: Next hemodialysis on Tuesday or Tuesday as inpatient or outpatient. Status: Chronic Priority: Medium (2) Anemia in ESRD (end-stage renal disease) Acute on chronic anemia due to ESRD, receiving Aranesp and IV iron in the dialysis unit. Recommendations: 1 unit PRBC for Hb <7.0 Furosemide 40 mg IV once for fluid overload, may repeat if needed. Status: Acute Priority: High
[2019-05-10] MEDS ORDERED: FUROSEMIDE 40 MG/4 ML VIAL IV ONE (07:59)
[2019-05-10] MEDS ORDERED: 0.9 % SODIUM CHLORIDE 250 ML IV SCH (08:00)
[2019-05-10] MEDS ORDERED: SERTRALINE 50 MG TABLET PO SCH (09:00)
[2019-05-10] MEDS ORDERED: INSULIN GLARGINE, HUMAN 1 UNIT/0.01 ML SQ SCH (09:00)
[2019-05-10] MEDS: INSULIN LISPRO 1 UNIT/0.01 ML UNIT SQ SCH ×2 (09:27→12:13)
[2019-05-10] MEDS: HEPARIN 5,000 UNIT/ML VIAL SQ SCH (09:27)
[2019-05-10] MEDS: DILTIAZEM 120 MG CAP.XL.24H PO SCH (09:28)
[2019-05-10] MEDS: DOCUSATE SODIUM 100 MG CAPSULE PO SCH (09:28)
[2019-05-10] MEDS: THIAMINE 100 MG TABLET PO SCH (09:28)
[2019-05-10] MEDS: MULTIVIT,THER IRON,CA,FA & MIN 1 TABLET PO SCH (09:37)
[2019-05-10] MEDS: FAMOTIDINE 20 MG TABLET PO SCH (09:40)
--- NOTE | 2019-05-10 14:33 | Discharge Summary ---
Medical - DS: Prov Patient information: Note initiated : 05/10/19 at 2:31 pm Service Date, if different from initiated Date: [] Patient: Elvia Garcia 84 y/o F admitted on 05/09/19 for Weaknesss. Chief Complaint: [] Date of admission: 05/09/19 09:17 Discharge date: 05/10/19 Primary care physician: Rubina White Consults: 05/09/19 Consult to Physician [CONS] Stat Comment: Consulting Provider: John Rivera Reason For Exam: Physician to Consult Consult to Physician [CONS] Stat Comment: Consulting Provider: Christine Iverson Reason For Exam: Physician to Consult Medical - DS: Meds - Discharge Medications Active and Home Medications: Home Medications docusate sodium 100 mg capsule 100 mg PO BID 02/15/18 [History Confirmed 05/09/19 Last Taken Unknown] ranitidine HCl 300 mg tablet 150 mg PO BID tab 11/09/18 [History Confirmed 05/09/19 Last Taken Unknown] doxazosin 8 mg tablet 8 mg PO QHS #30 tab 03/21/19 [Rx Confirmed 05/09/19 Last Taken Unknown] glimepiride 1 mg tablet 1 mg PO BID tab 03/21/19 [History Confirmed 05/09/19 Last Taken Unknown] pen needle, diabetic 31 gauge x 3/16" See Rx Instructions .ROUTE .MEDSUPPLY #100 each 04/06/19 [Rx Confirmed 05/09/19 Last Taken Unknown] insulin detemir U-100 100 unit/mL (3 mL) subcutaneous pen 7 unit SUB-Q QAM #15 ml 04/18/19 [Rx Confirmed 05/09/19 Last Taken Unknown] gabapentin 100 mg capsule 100 mg PO QHS #90 cap 05/04/19 [Rx Confirmed 05/09/19 Last Taken Unknown] sertraline 50 mg tablet 25 mg PO QDAY tab 05/04/19 [History Confirmed 05/09/19 Last Taken Unknown] Acetaminophen [Tylenol] 500 mg PO Q6HP PRN 05/05/19 [History Confirmed 05/09/19 Last Taken Unknown] Diltiazem [Cardizem Cd] 120 mg PO DAILY 05/05/19 [History Confirmed 05/09/19 Last Taken Unknown] Ondansetron [Zofran ODT] 4 mg SL Q4-6HP PRN #10 tab 05/05/19 [Rx Confirmed 05/09/19 Last Taken Unknown] Valsartan 320 mg PO QHS 05/05/19 [History Confirmed 05/09/19 Last Taken Unknown] Vit C/Vit E AC/Lut/Copper/Zinc [Preservision Lutein Softgel] 1 cap PO BID 05/05/19 [History Confirmed 05/09/19 Last Taken Unknown] Medical - DS: Hosp Hospital Course: Discharge diagnosis * A. fib with RVR paroxysmal-patient rapidly improved. Spontaneously converted to sinus without any further paroxysms. On home dose diltiazem. Chads score mandates anticoagulation. Patient would like to discuss with primary care physician. Schedule outpatient cardiology follow-up. Echo results pending. Fax copy of echocardiogram to PCP * ESRD -status post HD per nephrology * DM type II-stable on basal prandial insulin * Hypertension-continue ARB/diltiazem/doxazosin as per nephrology * Anemia-secondary to ESRD. Status post PRBC transfusion as per nephrology * Anxiety disorder continue sertraline * Hyperlipidemia continue statin * Colostomy care * Neuropathy continue gabapentin * GERD continue PPI Brief hospital course Ms. Garcia is a 84 year old F with a history of ESRD on HD/A. fib and recent h ospitalization at [facility] for A. fib RVR that spontaneously converted to sinus. Patient has been doing well since discharge until this morning while on the way to dialysis she was noted to be very weak lightheaded and dizzy and had a near syncopal episode. She was brought into the ER for evaluation and was found to be in A. fib RVR. Patient started on diltiazem drip. Nephrology was consulted for hemodialysis. Hospice service was consulted for evaluation. At the time of evaluation patient is alert and oriented. She is able to answer most questions. She denies any precipitating events. She has had a similar episode. She gets extreme symptomatic during atrial fibrillation episode. She denies fever, chills or [id number] medications. She however has been various antihypertensives currently being titrated by nephrology. She takes 120 diltiazem CD along with valsartan and doxazosin for hypertension. She is not on anticoagulation for CVA prophylaxis. 05/10.-Patient doing well. Status post PRBC transfusion as per nephrology recommendations. Conversion to sinus with no further episodes of atrial fibrillation over the last 16 hours. Feels at baseline. Discharging today with advised to follow-up with nephrology for continued hemodialysis. Continue home dose Cardizem. If patient experiences paroxysmal A fibrillation she would be a candidate for anticoagulation based on chads score 3. At this time patient unwilling to initiate anticoagulation. Further discussions per primary care physician. Patient will need outpatient follow-up with cardiology. Discharge instructions below Discharge diagnosis: . - Time Spent with Patient Total time spent providing and/or coordinating discharge services: Greater than 30 minutes Medical - DS: Exam - Constitutional Vitals: Vital Signs Temp Pulse Resp BP Pulse Ox 05/10/19 04:29 68 97 05/10/19 04:01 98.1 F 65 116/41 98 05/10/19 03:01 66 115/41 98 05/10/19 02:48 70 99 05/10/19 02:01 65 132/46 98 05/10/19 02:00 99 05/10/19 01:01 75 150/50 92 05/10/19 00:01 78 150/59 93 05/09/19 23:01 79 151/54 94 05/09/19 22:01 79 153/53 94 05/09/19 21:01 155/62 05/09/19 20:01 98.2 F 82 18 142/58 95 05/09/19 20:00 96 05/09/19 19:01 89 151/68 96 05/09/19 18:01 98.4 F 88 148/47 97 05/09/19 18:00 88 96 05/09/19 17:01 80 168/66 94 05/09/19 16:39 79 165/61 93 05/09/19 16:16 98.4 F 84 163/64 98 05/09/19 16:01 86 185/73 95 05/09/19 15:51 81 165/66 96 05/09/19 15:50 79 165/60 96 05/09/19 15:45 77 139/59 97 05/09/19 15:35 96.6 F L 75 139/59 05/09/19 15:31 78 141/62 96 05/09/19 15:25 76 141/62 05/09/19 15:16 85 154/50 97 05/09/19 15:14 84 154/50 05/09/19 15:01 85 163/58 97 05/09/19 14:56 90 163/58 05/09/19 14:46 81 159/74 96 05/09/19 14:39 81 159/74 Intake and Output 05/10/19 05/10/19 05/10/19 05:59 13:59 21:59 Intake Total 480 Balance 480 Intake: Oral 480 Medical - DS: Data Labs on day of discharge: Labs from last 24 hours 05/10/19 05/10/19 04:10 04:10 WBC 6.2 RBC 2.33 L Hgb 6.6 L* Hct 20.4 L* MCV 87.4 MCH 28.2 MCHC 32.3 RDW 16.7 H Plt Count 193 MPV 7.8 Total Counted 100 Seg Neutrophils % 70 Band Neutrophils % Not Reportable Lymphocytes % 20 Monocytes % (Manual) 6 Eosinophils % (Manual) 4 Platelet Estimate Normal RBC Morphology Normal Sodium 137 Potassium 3.7 Chloride 98 Carbon Dioxide 27 Anion Gap 12.0 BUN 14 Creatinine 3.0 H GFR Calculation 14 Glucose 118 H Uric Acid 3.0 Calcium 8.0 L Phosphorus 3.8 Magnesium 2.0 Total Bilirubin 0.2 Direct Bilirubin < 0.2 GGT 14 AST 20 ALT 9 Alkaline Phosphatase 74 Lactate Dehydrogenase 188 Total Protein 5.6 L Albumin 3.0 L Globulin 2.6 Albumin/Globulin Ratio 1.2 Triglycerides 249 H Medical - DS: A/P - Patient/Caregiver Discharge Instructions Activity: increase activity as tolerated Diet: Renal/Consistent Carbs Additional Instructions: Follow-up PCP in 5 to 7 days Recommend PCP to coordinate outpatient cardiology follow-up. Recommend PCP to discuss anticoagulation for CVA prophylaxis in light of paroxysmal A. fib. Chads score 3 Return to ER if lightheadedness dizziness noted Follow-up with nephrology for hemodialysis Continue colostomy care - Follow up Plan Follow up with: Rubina White MD [Primary Care Provider] - (Due to the holiday; this appointment could not be scheduled at discharge. Please call to schedule a post hospital appointment at your earliest convenience.) Christine Iverson MD [Physician] - (Continue with your current dialysis schedule.) Disposition: Home, Self-Care Care Plan Goals: This discharge packet is provided to you to help keep you informed about your care. We want to ensure you get everything you need when you go home. You will also be receiving a call from us in a few days to follow up with you and see how you are doing since your discharge. This gives us a chance to listen to any concerns you maybe experiencing since you were discharged or any additional needs you may have, as well as providing us feedback on your care experience. We strive to always provide excellent care and thank you for your feedback and for choosing [facility]. Prognosis: Good Rehab Potential: Fair I certify that the patient requires SNF services: No Overall status at discharge: patient is progressing back to baseline Medical - DS: Qual - VTE Deep Vein Thrombosis/Pulmonary Embolism Present on Admission: No
== END 2019-05-10 15:15 | disposition home or self-care (01) | DRG 308 ==
LOC: ED 07:01 → ICU 09:17
PROVIDERS: ADMIT Internal Medicine; ATTEND Internal Medicine

== ENCOUNTER 2019-11-02 20:00 | Inpatient (IN) ==
--- NOTE | 2019-11-02 20:09 | Internal Med History&Physical ---
Medical - H&P: [facility] Patient information: Note initiated : 11/02/19 at 8:05 pm Service Date, if different from initiated Date: [] Patient: Elvia Garcia a 84 y/o F admitted on for Dialysis. Chief Complaint: [] History of present illness: Ms. 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 She had a history of hypertension followed by hypotension. During his episode she has poor responsiveness. Per the family this seems to be the reason why the MRI was ordered. MRI revealed a left hemispheric stroke frontoparietal region. Timing of stroke is uncertain although she was seen in [facility] ED on the for elevated blood pressure. Did not present up with any neurological findings at that time it seems. Patient denies any focal numbness or weakness or speech difficulties. No chest pain shortness of breath fever chills. She was transferred over to [facility] with the ability to have dialysis. Patient very pleasant female. I did discuss with her past notes of atrial fibrillation and likely need for anticoagulation. She has no acute complaints. Review of Systems: Pertinent positives above. Denies headache/fever/chills/nausea/vomiting/chest or abdominal pain/cough/dyspnea/diarrhea. Remaining 10 point review of system reviewed negative Medical - H&P: [facility] [place] Medical history: Medical History (Last Reviewed 04/18/19 @ 14:38 by Edis Sethi MD) Anemia due to stage 5 chronic kidney disease treated with darbepoetin (Chronic) Secondary hyperparathyroidism of renal origin (Chronic) Anemia due to chronic kidney disease (Chronic) Type 2 diabetes mellitus with stage 5 chronic kidney disease and hypertension (Chronic) moth exterminator use of drug (Acute) Renal insufficiency (Acute 02/23/12) Rectal cancer (Acute) Proteinuria (Acute) Hypoalbuminemia (Acute) History of kidney stones (Acute 05/09/12) Hypopotassemia (Acute) Hypertension, renal disease (Chronic) Upper respiratory infection (Acute) Hypertension, essential (Acute 05/08/12) Hyperlipidemia (Acute 05/08/12) Homocystinemia (Acute) Disturbance of skin sensation (Acute) Diabetes mellitus, type II (Chronic) Chronic kidney disease, stage III (moderate) (Chronic 05/08/12) Vitamin D deficiency (Acute) Anemia, iron deficiency (Acute 07/31/12) Anemia in chronic kidney disease (Acute 05/08/12) Past Surgical History (Last Reviewed 04/18/19 @ 14:38 by Edis Sethi MD) History of hip surgery (Acute) History of hysterectomy (Acute) History of inguinal hernia repair (Acute) History of dilation and curettage (Acute) Family History (Last Reviewed 04/18/19 @ 14:38 by Edis Sethi MD) mother Malignant neoplasm of breast Social History (Last Updated 04/18/19 @ 18:56 by Edis Sethi MD) No alcohol or tobacco Use a walker Lives with the daughter Medical - H&P: Meds Home Medications Medication Instructions Recorded Confirmed Type docusate sodium 100 mg capsule 100 mg PO BID 02/15/18 05/09/19 History doxazosin 8 mg tablet 8 mg PO QHS #30 tab 03/21/19 05/09/19 Rx pen needle, diabetic 31 gauge x See Rx Instructions .ROUTE 04/06/19 05/09/19 Rx 3/16" .MEDSUPPLY #100 each insulin detemir U-100 100 unit/mL 7 unit SUB-Q QAM #15 ml 04/18/19 05/09/19 Rx (3 mL) subcutaneous pen gabapentin 100 mg capsule 100 mg PO QHS #90 cap 05/04/19 05/09/19 Rx sertraline 50 mg tablet 25 mg PO QDAY tab 05/04/19 05/09/19 History Vit C/Vit E AC/Lut/Copper/Zinc 1 cap PO BID 05/05/19 05/09/19 History [Preservision Lutein Softgel] ondansetron 4 mg disintegrating 4 mg PO Q6H PRN #10 tab 05/16/19 Rx tablet cholecalciferol (vitamin D3) 125 See Rx Instructions PO .COMPLEX 07/26/19 Rx mcg (5,000 unit) disintegrating #90 tab tablet meloxicam 7.5 mg tablet 7.5 mg PO QDAY #30 tab 09/20/19 Rx Insulin Detemir [Levemir] 10 unit SQ QAM 10/02/19 10/02/19 History captopril 25 mg tablet 25 mg PO .qTTS before dialysis #30 11/01/19 Rx tab diltiazem HCl 180 mg 180 mg PO QMWFSU #90 cap 11/01/19 Rx capsule,extended release 24 hr hydralazine 25 mg tablet 50 mg PO .COMPLEX #240 tab 11/01/19 Rx Allergies Allergy/AdvReac Type Severity Reaction Status Date / Time Amoxicillin Allergy Severe Itching Verified 10/02/19 15:00 clavulanic acid Allergy Severe Itching Verified 10/02/19 15:00 [From Augmentin] hydromorphone [From Dilaudid] Allergy Severe Other Verified 10/02/19 15:00 acetazolamide Allergy decreases Verified 07/21/19 10:01 kidney fxn fentanyl AdvReac Hallucinati Verified 07/21/19 10:01 ng other Food Allergies Allergy Unknown Unknown Uncoded 04/18/19 14:27 morphine Sulfate AdvReac Intermediate Hallucinati Uncoded 05/09/19 12:15 ng Medical - H&P: Exam - Constitutional Exam: General: Alert, Awake, No acute Distress Eyes/N/T: EOMI, 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, MMM Head/Neck: neck supple, normocephalic atraumatic CV: RRR, No murmurs, normal s1/s2 Pulm: Clear b/l, no wheezing/rhonchi/rales Abd: soft, nontender, +BS x4 Ext: no clubbing/cyanosis/edema Neuro: Alert, no focal deficits, moves all extremities, CN 2-12 grossly intact, symmetrical strength b/l upper/lower, sensations intact b/l upper/lower, no pronator drift and face symmetrical, speech clear Skin: warm/dry Medical - H&P: A/P - Narrative A/P Narrative: A: *Acute left frontoparietal CVA: Timing uncertain, possibly 18- per [facility] ED visit on for HTN *h/o PAF: Was unwilling to be placed on anticoagulation per last hospitalization notes April 2019 while at [facility] *ESRD: *Anemia, chronic *DM w/neuropathy: *HTN: *Anxiety: *GERD: * P: -echo and carotid u/s pending -discuss anticoagulation again -ASA/Statin -monitor on tele -cont home cardizem -cont home ACEI/Hydralazine -home basal and SSI - -pt/ot -ppx: Lovenox/home ppi full code
[2019-11-02] MEDS ORDERED: DEXTROSE 31 GM ORAL.SUSP PO PRN (20:23)
[2019-11-02] MEDS ORDERED: ONDANSETRON 4 MG/2 ML VIAL IV PRN (20:23)
[2019-11-02] MEDS ORDERED: DEXTROSE 50% 50 ML VIAL IV PRN (20:23)
[2019-11-02] MEDS ORDERED: POTASSIUM CHLORIDE 40 MEQ in DEXTROSE 5% IN WATER 500 ML IV PRN (20:23)
[2019-11-02] MEDS ORDERED: POLYETHYLENE GLYCOL 3350 17 GM PACKET PO PRN (20:23)
[2019-11-02] MEDS ORDERED: SENNOSIDES 1 TABLET PO PRN (20:23)
[2019-11-02] MEDS ORDERED: POTASSIUM CHLORIDE 20 MEQ TABLET PO PRN ×2 (20:23)
[2019-11-02] MEDS ORDERED: ACETAMINOPHEN 325 MG TABLET PO PRN (20:23)
[2019-11-02] MEDS ORDERED: MAGNESIUM SULFATE 2 GM/50 ML BAG IV PRN (20:23)
[2019-11-02] MEDS ORDERED: IPRATROPIUM/ALBUTEROL 3 ML AMPUL.NEB NEB PRN (20:23)
[2019-11-02] MEDS ORDERED: METOPROLOL TARTRATE 5 MG/5 ML VIAL IV PRN (20:30)
[2019-11-02] MEDS ORDERED: ATORVASTATIN 40 MG TABLET PO SCH (21:00)
[2019-11-02] MEDS ORDERED: ASPIRIN 81 MG TAB.CHEW CHEWED ONE (21:31)
[2019-11-02] MEDS ORDERED: LABETALOL 5 MG/ML ML IV PRN (21:40)
[2019-11-02] MEDS ORDERED: hydrALAZINE 20 MG/ML VIAL IV PRN (21:41)
[2019-11-02] MEDS ORDERED: DILTIAZEM 125 MG/25 ML VIAL IV ONE (22:43)
[2019-11-02] MEDS ORDERED: DILTIAZEM 125 MG in DEXTROSE 5% IN WATER 100 ML IV SCH (22:45)
[2019-11-02] MEDS: DOCUSATE SODIUM 100 MG CAPSULE PO SCH (22:48)
[2019-11-02] MEDS: FAMOTIDINE 20 MG TABLET PO SCH (22:48)
[2019-11-02] MEDS: HEPARIN 5,000 UNIT/ML VIAL SQ SCH (22:48)
[2019-11-02] MEDS: INSULIN LISPRO 1 UNIT/0.01 ML UNIT SQ SCH (22:49)
[2019-11-02] MEDS: 0.9 % SODIUM CHLORIDE 10 ML SYRINGE IV SCH (22:49)
[2019-11-03] MEDS: 0.9 % SODIUM CHLORIDE 10 ML SYRINGE IV SCH ×3 (05:06→21:22)
[2019-11-03 06:29] LABS: Basophils # (Auto) 0.03 K/mcL (0.00-0.30); Basophils % (Auto) 0.7 % (0.0-2.0); Eosinophils # (Auto) 0.33 K/mcL (0.00-0.70); Eosinophils % (Auto) 8.1 % (0.0-7.0); Granulocytes % (Auto) 47.1 % (38.0-78.0); Hematocrit 31.5 % (34.1-44.9); Hemoglobin 9.7 g/dL (11.2-15.7); Lymphocytes # (Auto) 1.33 K/mcL (1.50-4.80); Lymphocytes % (Auto) 32.8 % (15.5-49.0); Mean Cell Volume 97.2 fL (80.0-100.0); Mean Corpuscular HGB Conc 30.8 g/dL (31.0-36.0); Mean Platelet Volume 9.4 fL (7.4-10.4); Monocytes # (Auto) 0.46 K/mcL (0.10-0.90); Monocytes % (Auto) 11.3 % (1.0-12.0); Platelet Count 186 K/mcL (140-440); RBC 3.24 M/mcL (3.59-5.38); WBC 4.1 K/mcL (4.50-11.00)
[2019-11-03 06:57] LABS: ALT/SGPT 8 U/l (0-40); AST/SGOT 13 U/l (0-37); Albumin 3.2 gm/dL (3.2-5.2); Albumin/Globulin Ratio 1.6 (1.0-2.3); Alkaline Phosphatase 68 U/L (39-117); Bilirubin,Direct < 0.2 mg/dL (0.0-0.3); Bilirubin,Total 0.2 mg/dL (0.0-1.0); Blood Urea Nitrogen 27 mg/dl (8-23); Calcium 8.2 mg/dl (8.6-10.4); Carbon Dioxide 22 mmol/L (22-30); Chloride 100 mmol/L (96-108); Glomerular Filtration Rate 10; Glucose 131 mg/dL (70-105); HDL Cholesterol 31 mg/dl (>40); LDL Cholesterol,Calculated 98 mg/dl (SEE CHART); Lactate Dehydrogenase 160 U/L (94-250); Non-HDL Cholesterol 141 (LDL TARGET+30); Phosphorous 5.9 mg/dL (2.7-4.5); Triglycerides 216 mg/dl (<150); Uric Acid 4.3 mg/dL (2.5-8.0)
--- NOTE | 2019-11-03 07:40 | Internal Med Progress Note ---
Medical - PN: Subj Patient information: Note initiated : 11/03/19 at 7:38 am Service Date, if different from initiated Date: [] Patient: Elvia Garcia 84 y/o F admitted on 11/02/19 for Dialysis. Chief Complaint: [] Interval history: Ms. Garcia is a 84 year old F Who presented to [facility] for an MRI there is ordered by her director software development Dr. Sethi. She had a history of hypertension followed by hypotension. During his episode she has poor responsiveness. Per the family this seems to be the reason why the MRI was ordered. MRI revealed a left hemispheric stroke frontoparietal region. Timing of stroke is uncertain although she was seen in [facility] ED on the for elevated blood pressure. Did not present up with any neurological findings at that time it seems. Patient denies any focal numbness or weakness or speech difficulties. No chest pain shortness of breath fever chills. She was transferred over to [facility] with the ability to have dialysis. Patient very pleasant female. I did discuss with her past notes of atrial fibrillation and likely need for anticoagulation. She has no acute complaints. 11/02 Patient did develop A. fib RVR last night was put on diltiazem drip and then converted several hours later. No other events overnight. Patient getting dialysis today. Patient denies any focal weakness or numbness or speech difficulties. Review of Systems: denies headache/fever/chills/nausea/vomiting/chest or abdominal pain/cough/dyspnea/diarrhea. Otherwise see above. - Constitutional Vitals: Vital Signs Temp Pulse Resp BP Pulse Ox 98.4 F 72 18 136/66 95 11/03/19 04:01 11/03/19 06:21 11/03/19 06:21 11/03/19 06:21 11/03/19 06:21 Period Temp Pulse Resp BP Sys/Martinez Pulse Ox Last 24 Hr 97.7 F-98.4 F 59-141 11-21 100-224/48-166 88-100 Intake and Output 11/02/19 11/03/19 11/03/19 21:59 05:59 13:59 Intake Total 131 Output Total 150 200 Balance -19 -200 Weight 49.079 kg Intake & Output: Intake & Output 11/02/19 11/03/1911/02/20 21:59 05:59 13:59 Intake Total 131 Output Total 150 200 Balance -19 200 Weight 49.079 kg Intake: IV 11 Cardizem 125 mg In Dextrose 5% 11 in Water 100 ml @ 5 MG/HR 5 mls /hr IV Q12H [facility] Rx#:[id number] Oral 120 Output: Void Amount 150 200 Other: Meal Dinner Percent of Meal Consumed 100% Feeding Ability Assist with Tray Set Up Urine Appearance Clear Clear Urine Color Dark Yellow Dark Yellow Exam: General: Alert, Awake, No acute Distress Eyes/N/T: EOMI, 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 Head/Neck: neck supple, normocephalic atraumatic CV: RRR, No murmurs, Pulm: Clear b/l, no wheezing/rhonchi/rales Abd: soft, nontender, +BS x4 Ext: no clubbing/cyanosis/edema Neuro: Alert, no focal deficits, moves all extremities, speech clear Skin: warm/dry Medical - PN: Obj Da - Labs CBC & Chem 7: 11/03/19 04:36 11/03/19 04:36 Labs: Abnormal Lab Results 11/03/19 11/03/19 04:36 04:36 WBC 4.1 L RBC 3.24 L Hgb 9.7 L Hct 31.5 L MCHC 30.8 L RDW 15.0 H Eos % (Auto) 8.1 H Lymph # (Auto) 1.33 L BUN 27 H Creatinine 3.7 H Glucose 131 H Calcium 8.2 L Phosphorus 5.9 H Total Protein 5.2 L Globulin 2.0 L Triglycerides 216 H Non-HDL Cholesterol 141 H HDL Cholesterol 31 L Meds: Medications Acetaminophen (Tylenol) 650 mg PO Q6HP PRN PRN Reason: PAIN/FEVER > 101 Albuterol/Ipratropium (Duoneb) 3 ml NEB Q4HP PRN PRN Reason: Shortness Of Breath Aspirin (Aspirin) 81 mg PO DAILY [facility] Atorvastatin Calcium (Lipitor) 80 mg PO HS [facility] Last Admin: 11/02/19 22:49 Dose: 80 mg Documented by: Captopril (Capoten) 25 mg PO .qTTS before dialysis [facility] Dextrose (Dextrose 50%) 0 ml IV UD PRN PRN Reason: Hypoglycemia Diagnostic Test (Pha) (Accu-Chek) 1 each FS ACHS [facility] Last Admin: 11/02/19 22:49 Dose: 1 each Documented by: Docusate Sodium (Colace) 100 mg PO BID [facility] Last Admin: 11/02/19 22:48 Dose: 100 mg Documented by: Famotidine (Pepcid) 20 mg PO HS [facility] Last Admin: 11/02/19 22:48 Dose: 20 mg Documented by: Glucose (Insta-Glucose) 15 gm PO PRN PRN PRN Reason: Hypoglycemia Heparin Sodium (Porcine) (Heparin) 5,000 unit SQ Q12 [facility] Last Admin: 11/02/19 22:48 Dose: 5,000 unit Documented by: Hydralazine HCl (Apresoline) 10 mg IV Q2HP PRN PRN Reason: Hypertension sbp>200 Potassium Chloride 40 meq/ (Dextrose) 520 mls @ 130 mls/hr IV UD PRN PRN Reason: Potassium < 3 Magnesium Sulfate (Magnesium Sulfate) 2 gm in 50 mls @ 50 mls/hr IV UD PRN PRN Reason: Magnesium </= 1.6 Diltiazem HCl 125 mg/ Dextrose 125 mls @ 5 mls/hr IV Q12H [facility]; Protocol Last Titration: 11/03/19 01:05 Dose: 0 mg/hr, 0 mls/hr Documented by: Insulin Human Lispro (Humalog) 0 unit SQ [facility]; Protocol Last Admin: 11/02/19 22:49 Dose: Not Given Documented by: Labetalol HCl (Trandate) 10 mg IV Q2HP PRN PRN Reason: sbp>200 Metoprolol Tartrate (Lopressor) 5 mg IV Q2HP PRN PRN Reason: Tachyarrhythmias HR>110 Ondansetron HCl (Zofran) 4 mg IV Q4HP PRN PRN Reason: Nausea And Vomiting Polyethylene Glycol (Miralax) 17 gm PO DAILYP PRN PRN Reason: Constipation Potassium Chloride (Kdur) 40 meq PO UD PRN PRN Reason: Potssium is 3-3.5 Potassium Chloride (Kdur) 40 meq PO UD PRN PRN Reason: Potassium < 3 Senna (Senokot) 2 tab PO DAILYP PRN PRN Reason: Constipation Sodium Chloride (Saline Flush) 10 ml IV Q8 [facility] Last Admin: 11/03/19 05:06 Dose: 10 ml Documented by: Medical - PN: A/P - Time Spent With Patient Total time spent is greater than 50% in coordination of care (as documented) at patient's floor/unit and/or counseling patient: - Narrative A/P Narrative: A: *Acute left frontoparietal CVA: Timing uncertain, possibly 18-19 per [facility] ED visit on for HTN *PAF with AFib RVR: Was unwilling to be placed on anticoagulation last hospitalization April 2019 while at [facility] per notes: -now amenable to anticoagulation -converted to sinus early this morning *ESRD: *Anemia, chronic *DM w/neuropathy: *HTN: *Anxiety: *GERD: * P: -echo and carotid u/s pending -will start warfarin -ASA for until anticoag started/Statin -dilt gtt off, cont home oral diltiazem -cont home ACEI/Hydralazine -Nephro for HD -home basal and SSI -bedside swallow eval unremarkable -pt/ot -ppx: warfarin per pharm/home ppi full code Medical - PN: Qual - Stroke Symptom Onset Unknown: Yes
[2019-11-03] MEDS: INSULIN LISPRO 1 UNIT/0.01 ML UNIT SQ SCH ×4 (07:57→21:21)
[2019-11-03] MEDS ORDERED: CAPTOPRIL 12.5 MG TABLET PO SCH (08:00)
[2019-11-03] MEDS ORDERED: hydrALAZINE 25 MG TABLET PO PRN (08:22)
[2019-11-03] MEDS ORDERED: DILTIAZEM 125 MG in DEXTROSE 5% IN WATER 100 ML IV PRN (09:00)
--- NOTE | 2019-11-03 09:24 | Nephrology Consult Note ---
History of Present Illness - Reason for Consult Patient information: Note initiated : 11/03/19 at 9:22 am Service Date, if different from initiated Date: [] Patient: Elvia Garcia 84 y/o F admitted on 11/02/19 for Dialysis. Chief Complaint: [] end stage renal disease Requesting physician: Nish Leon - History of Present Illness 84-year-old female admitted on 11/02/2019 She presented to [facility] for an MRI that revealed a left frontoparietal stroke. Timing of stroke is uncertain as the patient presented with no neurological findings. She does have a history of labile blood pressure. The patient developed A. fib with RVR and was started on diltiazem drip, she has a history of paroxysmal A. fib and previously refused anticoagulation. medical history Rectal cancer status post partial colectomy and colostomy T2 DM ESRD on HD Vitamin D deficiency Anemia chronic kidney disease Secondary hyperparathyroidism of renal origin Surgical history colectomy with colostomy Keep surgery History of hysterectomy Social history she is a retired teacher. She lives with 1 of her daughter's who acts as her power of title attorney Family history noncontributory Review of systems Denies edema, shortness of breath, slurred speech, weakness. Lost the vision in her right eye, can see over the left. 12 point review of system negative unle ss otherwise specified Physical exam Vital signs reviewed Frail appearing elderly female in no acute distress HEENT head is normocephalic and atraumatic, nonicteric left sclera. Right eye closed Neck no JVD Respiratory on room air, nonlabored respirations Cardiovascular regular rate and rhythm, present peripheral pulses. Abdomen soft, nontender Skin warm and dry, no rashes on exposed area Neurologic exam alert, oriented to place, date, person. Clear soft speech, intermittent pausing, moves all extremities, strength 4+ out of 5 in all extremities, no facial droop. Can follow one-step commands. Medications and Allergies Home Medications Medication Instructions Recorded Confirmed Type docusate sodium 100 mg capsule 100 mg PO BID 02/15/18 11/03/19 History pen needle, diabetic 31 gauge x See Rx Instructions .ROUTE 04/06/19 05/09/19 Rx 3/16" .MEDSUPPLY #100 each gabapentin 100 mg capsule 100 mg PO QHS #90 cap 05/04/19 11/03/19 Rx Vit C/Vit E AC/Lut/Copper/Zinc 1 cap PO BID 05/05/19 11/03/19 History [Preservision Lutein Softgel] ondansetron 4 mg disintegrating 4 mg PO Q6H PRN #10 tab 05/16/19 11/03/19 Rx tablet cholecalciferol (vitamin D3) 125 See Rx Instructions PO .COMPLEX 07/26/19 11/03/19 Rx mcg (5,000 unit) disintegrating #90 tab tablet meloxicam 7.5 mg tablet 7.5 mg PO QDAY #30 tab 09/20/19 11/03/19 Rx Insulin Detemir [Levemir] 10 unit SQ QAM 10/02/19 11/03/19 History captopril 25 mg tablet 25 mg PO .qTTS before dialysis #30 11/01/19 11/02/19 Rx tab diltiazem HCl 180 mg 180 mg PO QMWFSU #90 cap 11/01/19 11/03/19 Rx capsule,extended release 24 hr hydralazine 25 mg tablet 50 mg PO .COMPLEX #240 tab 11/01/19 11/03/19 Rx Doxazosin Mesylate [Cardura] 4 mg PO QHS 11/03/19 11/03/19 History Nate/Polymyx B Sulf/Dexameth 1 gtt OU BID 11/03/19 11/03/19 History [Maxitrol Eye Drops] Allergies Allergy/AdvReac Type Severity Reaction Status Date / Time Amoxicillin Allergy Severe Itching Verified 10/02/19 15:00 clavulanic acid Allergy Severe Itching Verified 10/02/19 15:00 [From Augmentin] hydromorphone [From Dilaudid] Allergy Severe Other Verified 10/02/19 15:00 acetazolamide Allergy decreases Verified 07/21/19 10:01 kidney fxn fentanyl AdvReac Hallucinati Verified 07/21/19 10:01 ng other Food Allergies Allergy Unknown Unknown Uncoded 04/18/19 14:27 morphine Sulfate AdvReac Intermediate Hallucinati Uncoded 05/09/19 12:15 ng Exam - Vital Signs Vital signs: Temp Pulse Resp BP Pulse Ox 36.4 C 73 13 152/76 95 11/03/19 08:01 11/03/19 08:37 11/03/19 08:37 11/03/19 08:21 11/03/19 08:37 Results - Lab Results 11/03/19 04:36 11/03/19 04:36 Most recent lab results Calcium 8.2 mg/dl (8.6-10.4) L 11/03/19 04:36 Phosphorus 5.9 mg/dL (2.7-4.5) H 11/03/19 04:36 Magnesium 2.3 mg/dL (1.6-2.5) 11/03/19 04:36 Assessment and Plan (1) ESRD (end stage renal disease) on dialysis Status: Chronic Priority: Medium - Narrative A/P Narrative: ESRD on HD TTS. Last dialysis 11/01/2019. Per review of notes the patient becomes symptomatic when her blood pressure is around 110 over 60s. Per discussion with project production engineer sometimes she is symptomatic with a systolic in the 120s. EDW 53 kg Outpatient prescription bath 3K, 2.5 calcium, 36 bicarbonate, 3.5 hours, blood flow rate 350/dialysate flow rate 800. She uses heparin 500 bolus and 500 hourly Gentle dialysis today 3K bath, 2.5 calcium, 138 sodium, no heparin. Blood flow rate 250-300/dialysate flow rate 500-600. Please wait the patient before the treatment. UF to keep even. Hemodynamics and volume Appears clinically euvolemic. SBP was between 100/48-152/76. On dialysis my goal is to maintain a systolic blood pressure of at least 120 at all times. Serum albumin 3.2 Bone mineral Corrected calcium 8.8, mild hyperphosphatemia 5.9. Magnesium within lab reference range Hematologic Leukopenia, anemia with hemoglobin 9.7. Continue to monitor. Status post 100 mcg Aranesp on 10/18/2019. Frontoparietal stroke At the time of my consult the MRI report was not available. We requested the report, we received a draft and ICU. No mention of edema. Carotid ultrasound and Doppler of the heart/bubble study ordered by the hospitalist. Further management by the hospitalist.
[2019-11-03] MEDS: DOCUSATE SODIUM 100 MG CAPSULE PO SCH ×2 (09:40→21:20)
[2019-11-03] MEDS: hydrALAZINE 25 MG TABLET PO SCH ×2 (09:40→21:20)
[2019-11-03] MEDS: ASPIRIN 81 MG TAB.CHEW PO SCH (09:41)
[2019-11-03] MEDS: HEPARIN 5,000 UNIT/ML VIAL SQ SCH ×2 (09:41→21:21)
[2019-11-03] MEDS: INSULIN GLARGINE, HUMAN 1 UNIT/0.01 ML SQ SCH (10:02)
[2019-11-03] MEDS: NEO/POLYMYX B SULF/DEXAMETH 1 RIBBON OINT.OPHTH OU SCH ×2 (10:03→21:21)
[2019-11-03] MEDS ORDERED: WARFARIN 3 MG TABLET PO ONE (14:00)
--- NOTE | 2019-11-03 16:52 | Ultrasound Report ---
CLINICAL INFORMATION: JOSÉ MIGUEL COMPARISON: None. TECHNIQUE: Spectral Doppler velocity measurements were obtained in the proximal, mid and distal common and internal carotid, both vertebral and proximal external carotid arteries bilaterally. Supplemental color and power Doppler imaging was also obtained to optimize stenosis detection. In reporting, any internal carotid stenosis was indirectly quantified comparing the distal internal carotid velocity. For ratio comparison, the internal carotid artery, at the level of stenosis, was utilized in the numerator and the normal distal internal carotid artery velocity was utilized as the denominator. Velocities are validated with angiographic measurements extrapolated from diameter data - as defined by the Society of Radiologists in Ultrasound Consensus Conference .Radiology 2003; 229; 340 - 346. FINDINGS: See worksheet by the technologist for velocities in PACS IMPRESSION: Both common, internal and external carotid arteries are widely patent. Mixed fibrofatty calcific plaque seen within both carotid bifurcations. Antegrade flow present in both vertebral arteries Please correlate with CTA CT Angiography or MRA MR Angiography if surgery is contemplated. Interpreted and Authenticated by: Andrew Sarah 11/03/19
[2019-11-03] MEDS ORDERED: ATORVASTATIN 20 MG TABLET PO SCH (21:00)
[2019-11-03] MEDS ORDERED: GABAPENTIN 100 MG CAPSULE PO SCH (21:00)
[2019-11-03] MEDS ORDERED: DOXAZOSIN 4 MG TABLET PO SCH (21:00)
[2019-11-03] MEDS: FAMOTIDINE 20 MG TABLET PO SCH (21:20)
[2019-11-04] MEDS: 0.9 % SODIUM CHLORIDE 10 ML SYRINGE IV SCH ×3 (05:24→21:16)
[2019-11-04 06:09] LABS: Basophils # (Auto) 0.02 K/mcL (0.00-0.30); Basophils % (Auto) 0.5 % (0.0-2.0); Eosinophils # (Auto) 0.28 K/mcL (0.00-0.70); Eosinophils % (Auto) 7.1 % (0.0-7.0); Granulocytes % (Auto) 48.4 % (38.0-78.0); Hematocrit 29.4 % (34.1-44.9); Hemoglobin 9.2 g/dL (11.2-15.7); Lymphocytes # (Auto) 1.32 K/mcL (1.50-4.80); Lymphocytes % (Auto) 33.6 % (15.5-49.0); Mean Cell Volume 96.4 fL (80.0-100.0); Mean Corpuscular HGB Conc 31.3 g/dL (31.0-36.0); Mean Platelet Volume 9.4 fL (7.4-10.4); Monocytes # (Auto) 0.41 K/mcL (0.10-0.90); Monocytes % (Auto) 10.4 % (1.0-12.0); Platelet Count 150 K/mcL (140-440); RBC 3.05 M/mcL (3.59-5.38); Red Cell Distribution Width 14.8 % (11.5-14.5); WBC 3.9 K/mcL (4.50-11.00)
[2019-11-04 06:14] LABS: Prothrombin Time 13.4 sec (11.9-14.5)
[2019-11-04 06:31] LABS: Calcium 7.9 mg/dl (8.6-10.4); Carbon Dioxide 22 mmol/L (22-30); Chloride 98 mmol/L (96-108); Glucose 97 mg/dL (70-105)
[2019-11-04 06:32] LABS: Blood Urea Nitrogen 17 mg/dl (8-23); Glomerular Filtration Rate 15
[2019-11-04] MEDS: INSULIN LISPRO 1 UNIT/0.01 ML UNIT SQ SCH ×4 (07:42→21:19)
[2019-11-04] MEDS ORDERED: LABETALOL 5 MG/ML ML IV PRN ×2 (07:54→15:21)
--- NOTE | 2019-11-04 07:56 | Internal Med Progress Note ---
Medical - PN: Subj Patient information: Note initiated : 11/04/19 at 7:53 am Service Date, if different from initiated Date: [] Patient: Elvia Garcia 84 y/o F admitted on 11/02/19 for Dialysis. Chief Complaint: [] Interval history: Ms. Garcia is a 84 year old F Who presented to [facility] for an MRI there is ordered by her washer off Dr. Sethi. She had a history of hypertension followed by hypotension. During his episode she has poor responsiveness. Per the family this seems to be the reason why the MRI was ordered. MRI revealed a left hemispheric stroke frontoparietal region. Timing of stroke is uncertain although she was seen in [facility] ED on the for elevated blood pressure. Did not present up with any neurological findings at that time it seems. Patient denies any focal numbness or weakness or speech difficulties. No chest pain shortness of breath fever chills. She was transferred over to [facility] with the ability to have dialysis. Patient very pleasant female. I did discuss with her past notes of atrial fibrillation and likely need for anticoagulation. She has no acute complaints. 11/02 Patient did develop A. fib RVR last night was put on diltiazem drip and then converted several hours later. No other events overnight. Patient getting dialysis today. Patient denies any focal weakness or numbness or speech difficulties. 11/03 Sleeping well. No overnight events or new complaints. Sinus rhythm. Review of Systems: denies headache/fever/chills/nausea/vomiting/chest or abdominal pain/cough/dyspnea/diarrhea. Otherwise see above. - Constitutional Vitals: Vital Signs Temp Pulse Resp BP Pulse Ox 98.2 F 75 14 150/66 95 11/04/19 04:01 11/04/19 06:00 11/04/19 06:00 11/04/19 05:01 11/04/19 06:00 Period Temp Pulse Resp BP Sys/Martinez Pulse Ox Last 24 Hr 97.4 F-98.3 F 68-98 8-24 142-185/53-125 94-100 Intake and Output 11/03/19 11/04/19 11/04/19 21:59 05:59 13:59 Intake Total 360 300 Output Total 1325 375 Balance -965 -75 Weight 50.802 kg Intake & Output: Intake & Output 11/03/19 11/04/19 11/04/19 21:59 05:59 13:59 Intake Total 360 300 Output Total 1325 375 Balance -965 -75 Weight 50.802 kg Intake: Oral 360 300 Output: Void Amount 325 375 Stool 100 Hemodialysis UF 900 Other: Meal Lunch Percent of Meal Consumed 75% Feeding Ability Independent Stool Size Moderate Stool Color Brown Stool Consistency Soft # Bowel Movements 1 1 Exam: General: Alert, Awake, No acute Distress Eyes/N/T: EOMI, 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 Head/Neck: neck supple, normocephalic atraumatic CV: RRR, No murmurs, Pulm: Clear b/l, no wheezing/rhonchi/rales Abd: soft, nontender, +BS x4 Ext: no clubbing/cyanosis/edema Neuro: Alert, no focal deficits, moves all extremities, speech clear Skin: warm/dry Medical - PN: Obj Da - Labs CBC & Chem 7: 11/04/19 04:26 11/04/19 04:26 Labs: Abnormal Lab Results 11/04/19 11/04/19 11/03/19 04:26 04:26 04:36 WBC 3.9 L RBC 3.05 L Hgb 9.2 L Hct 29.4 L MCHC RDW 14.8 H Eos % (Auto) 7.1 H Lymph # (Auto) 1.32 L Sodium 130 L BUN 27 H Creatinine 2.7 H 3.7 H Glucose 131 H Calcium 7.9 L 8.2 L Phosphorus 5.9 H Total Protein 5.2 L Globulin 2.0 L Triglycerides 216 H Non-HDL Cholesterol 141 H HDL Cholesterol 31 L 11/03/19 04:36 WBC 4.1 L RBC 3.24 L Hgb 9.7 L Hct 31.5 L MCHC 30.8 L RDW 15.0 H Eos % (Auto) 8.1 H Lymph # (Auto) 1.33 L Sodium BUN Creatinine Glucose Calcium Phosphorus Total Protein Globulin Triglycerides Non-HDL Cholesterol HDL Cholesterol Meds: Medications Acetaminophen (Tylenol) 650 mg PO Q6HP PRN PRN Reason: PAIN/FEVER > 101 Albuterol/Ipratropium (Duoneb) 3 ml NEB Q4HP PRN PRN Reason: Shortness Of Breath Aspirin (Aspirin) 81 mg PO DAILY [facility] Last Admin: 11/03/19 09:41 Dose: 81 mg Documented by: Atorvastatin Calcium (Lipitor) 20 mg PO [facility] Last Admin: 11/03/19 21:20 Dose: 20 mg Documented by: Captopril (Capoten) 25 mg PO TuThSa@0800 [facility] Last Admin: 11/03/19 09:40 Dose: 25 mg Documented by: Dextrose (Dextrose 50%) 0 ml IV UD PRN PRN Reason: Hypoglycemia Diagnostic Test (Pha) (Accu-Chek) 1 each FS ACHS [facility] Last Admin: 11/04/19 07:35 Dose: 1 each Documented by: Diltiazem HCl (Cardizem Cd) 180 mg PO SuMoWeFr@0900 [facility] Docusate Sodium (Colace) 100 mg PO BID [facility] Last Admin: 11/03/19 21:20 Dose: 100 mg Documented by: Doxazosin Mesylate (Cardura) 4 mg PO [facility] Last Admin: 11/03/19 21:20 Dose: 4 mg Documented by: Famotidine (Pepcid) 20 mg PO [facility] Last Admin: 11/03/19 21:20 Dose: 20 mg Documented by: Gabapentin (Neurontin) 100 mg PO QHS [facility] Last Admin: 11/03/19 21:21 Dose: 100 mg Documented by: Glucose (Insta-Glucose) 15 gm PO PRN PRN PRN Reason: Hypoglycemia Heparin Sodium (Porcine) (Heparin) 5,000 unit SQ Q12 [facility] Stop: 11/04/19 10:00 Last Admin: 11/03/19 21:21 Dose: 5,000 unit Documented by: Hydralazine HCl (Apresoline) 10 mg IV Q2HP PRN PRN Reason: Hypertension sbp>200 Hydralazine HCl (Apresoline) 50 mg PO BID [facility] Last Admin: 11/03/19 21:20 Dose: 50 mg Documented by: Hydralazine HCl (Apresoline) 25 mg PO TuThSa@0800 PRN PRN Reason: 25 MG PO FOR BP >170/80 Last Admin: 11/03/19 14:38 Dose: 25 mg Documented by: Potassium Chloride 40 meq/ (Dextrose) 520 mls @ 130 mls/hr IV UD PRN PRN Reason: Potassium < 3 Magnesium Sulfate (Magnesium Sulfate) 2 gm in 50 mls @ 50 mls/hr IV UD PRN PRN Reason: Magnesium </= 1.6 Diltiazem HCl 125 mg/ Dextrose 125 mls @ 5 mls/hr IV Q12HP PRN; Protocol PRN Reason: TITRATE TO KEEP HR <100,SBP>90 Insulin Glargine (Lantus) 10 unit SQ DAILY [facility] Last Admin: 11/03/19 10:02 Dose: 10 unit Documented by: Insulin Human Lispro (Humalog) 0 unit SQ ACHS [facility]; Protocol Last Admin: 11/04/19 07:42 Dose: Not Given Documented by: Labetalol HCl (Trandate) 10 mg IV Q2HP PRN PRN Reason: sbp>200 Metoprolol Tartrate (Lopressor) 5 mg IV Q2HP PRN PRN Reason: Tachyarrhythmias HR>110 Neomycin/Polymyxin/Dexamethasone (Maxitrol Ophth Oint) 1 ribbon OU BID [facility] Last Admin: 11/03/19 21:21 Dose: 1 gtt Documented by: Ondansetron HCl (Zofran) 4 mg IV Q4HP PRN PRN Reason: Nausea And Vomiting Polyethylene Glycol (Miralax) 17 gm PO DAILYP PRN PRN Reason: Constipation Potassium Chloride (Kdur) 40 meq PO UD PRN PRN Reason: Potssium is 3-3.5 Potassium Chloride (Kdur) 40 meq PO UD PRN PRN Reason: Potassium < 3 Senna (Senokot) 2 tab PO DAILYP PRN PRN Reason: Constipation Sodium Chloride (Saline Flush) 10 ml IV Q8 [facility] Last Admin: 11/04/19 05:24 Dose: 10 ml Documented by: Warfarin Sodium (Coumadin Per Pharmacy) 1 order PO UD [facility] Medical - PN: A/P - Time Spent With Patient Total time spent is greater than 50% in coordination of care (as documented) at patient's floor/unit and/or counseling patient: - Narrative A/P Narrative: A: *Acute left frontoparietal CVA: Timing uncertain, possibly 18- per [facility] ED visit on for HTN -carotid u/s no stenosis -echo *PAF with AFib RVR: Was unwilling to be placed on anticoagulation last hospitalization April 2019 while at [facility] per notes: -now amenable to anticoagulation -converted to back to sinus *ESRD: *Anemia, chronic *DM w/neuropathy: *HTN: *Anxiety: *GERD: *hyponatremia: P: -echo pending -started warfarin -ASA until anticoag started/Statin -cont home oral diltiazem -cont home ACEI/Hydralazine -Nephro for HD -home basal and SSI -bedside swallow eval unremarkable -pt/ot -ppx: warfarin per pharm/home ppi full code Medical - PN: Qual - Stroke Symptom Onset Unknown: Yes
[2019-11-04] MEDS ORDERED: DILTIAZEM 180 MG CAP.XL.24H PO SCH (09:00)
[2019-11-04] MEDS: hydrALAZINE 25 MG TABLET PO SCH ×2 (09:49→21:11)
[2019-11-04] MEDS: ASPIRIN 81 MG TAB.CHEW PO SCH (09:50)
[2019-11-04] MEDS: NEO/POLYMYX B SULF/DEXAMETH 1 RIBBON OINT.OPHTH OU SCH ×3 (09:50→21:24)
[2019-11-04] MEDS: INSULIN GLARGINE, HUMAN 1 UNIT/0.01 ML SQ SCH (09:50)
[2019-11-04] MEDS: HEPARIN 5,000 UNIT/ML VIAL SQ SCH (09:50)
[2019-11-04] MEDS: DOCUSATE SODIUM 100 MG CAPSULE PO SCH ×2 (09:53→21:11)
[2019-11-04] MEDS ORDERED: WARFARIN 3 MG TABLET PO ONE (14:00)
[2019-11-04] MEDS ORDERED: MAGNESIUM SULFATE 2 GM/50 ML BAG IV PRN (15:21)
[2019-11-04] MEDS ORDERED: DILTIAZEM 125 MG in DEXTROSE 5% IN WATER 100 ML IV PRN (15:21)
[2019-11-04] MEDS ORDERED: DEXTROSE 50% 50 ML VIAL IV PRN (15:21)
[2019-11-04] MEDS ORDERED: SENNOSIDES 1 TABLET PO PRN (15:21)
[2019-11-04] MEDS ORDERED: ONDANSETRON 4 MG/2 ML VIAL IV PRN (15:21)
[2019-11-04] MEDS ORDERED: IPRATROPIUM/ALBUTEROL 3 ML AMPUL.NEB NEB PRN (15:21)
[2019-11-04] MEDS ORDERED: ACETAMINOPHEN 325 MG TABLET PO PRN (15:21)
[2019-11-04] MEDS ORDERED: DEXTROSE 31 GM ORAL.SUSP PO PRN (15:21)
[2019-11-04] MEDS ORDERED: hydrALAZINE 20 MG/ML VIAL IV PRN (15:21)
[2019-11-04] MEDS ORDERED: POLYETHYLENE GLYCOL 3350 17 GM PACKET PO PRN (15:21)
[2019-11-04] MEDS ORDERED: hydrALAZINE 25 MG TABLET PO PRN (15:21)
[2019-11-04] MEDS ORDERED: METOPROLOL TARTRATE 5 MG/5 ML VIAL IV PRN (15:21)
[2019-11-04] MEDS ORDERED: POTASSIUM CHLORIDE 40 MEQ in DEXTROSE 5% IN WATER 500 ML IV PRN (15:21)
[2019-11-04] MEDS ORDERED: POTASSIUM CHLORIDE 20 MEQ TABLET PO PRN ×2 (15:21)
[2019-11-04] MEDS ORDERED: DOXAZOSIN 4 MG TABLET PO SCH (21:00)
[2019-11-04] MEDS: FAMOTIDINE 20 MG TABLET PO SCH (21:10)
[2019-11-04] MEDS: GABAPENTIN 100 MG CAPSULE PO SCH (21:10)
[2019-11-04] MEDS: ATORVASTATIN 20 MG TABLET PO SCH (21:10)
[2019-11-05 06:22] LABS: INR 1.3 (0.9-1.1); Prothrombin Time 16.5 sec (11.9-14.5)
[2019-11-05 06:25] LABS: Calcium 8.4 mg/dl (8.6-10.4); Carbon Dioxide 20 mmol/L (22-30); Chloride 104 mmol/L (96-108); Glucose 110 mg/dL (70-105)
[2019-11-05 06:26] LABS: Blood Urea Nitrogen 33 mg/dl (8-23); Glomerular Filtration Rate 10
[2019-11-05] MEDS: 0.9 % SODIUM CHLORIDE 10 ML SYRINGE IV SCH ×3 (07:25→20:59)
[2019-11-05] MEDS: INSULIN LISPRO 1 UNIT/0.01 ML UNIT SQ SCH ×4 (07:26→20:59)
[2019-11-05] MEDS: hydrALAZINE 25 MG TABLET PO SCH (07:47)
[2019-11-05] MEDS: DOCUSATE SODIUM 100 MG CAPSULE PO SCH ×2 (07:48→20:52)
[2019-11-05] MEDS ORDERED: CAPTOPRIL 12.5 MG TABLET PO ONE (08:25)
[2019-11-05] MEDS ORDERED: LABETALOL 5 MG/ML ML IV PRN (08:31)
--- NOTE | 2019-11-05 08:35 | Internal Med Progress Note ---
Medical - PN: Subj Patient information: Note initiated : 11/05/19 at 8:30 am Service Date, if different from initiated Date: [] Patient: Elvia Garcia 84 y/o F admitted on 11/02/19 for Dialysis. Chief Complaint: [] Interval history: Ms. Garcia is a 84 year old F Who presented to [facility] for an MRI there is ordered by her chemistry specialist Dr. Sethi. She had a history of hypertension followed by hypotension. During his episode she has poor responsiveness. Per the family this seems to be the reason why the MRI was ordered. MRI revealed a left hemispheric stroke frontoparietal region. Timing of stroke is uncertain although she was seen in [facility] ED on the for elevated blood pressure. Did not present up with any neurological findings at that time it seems. Patient denies any focal numbness or weakness or speech difficulties. No chest pain shortness of breath fever chills. She was transferred over to [facility] with the ability to have dialysis. Patient very pleasant female. I did discuss with her past notes of atrial fibrillation and likely need for anticoagulation. She has no acute complaints. 11/02 Patient did develop A. fib RVR last night was put on diltiazem drip and then converted several hours later. No other events overnight. Patient getting dialysis today. Patient denies any focal weakness or numbness or speech difficulties. 11/03 Sleeping well. No overnight events or new complaints. Sinus rhythm. 11/04 Getting dialysis this morning. No overnight events other than a brief episode of a flutter converted back. Likely discharge in the morning. Echo unremarkable. Review of Systems: denies headache/fever/chills/nausea/vomiting/chest or abdominal pain/cough/dyspnea/diarrhea. Otherwise see above. - Constitutional Vitals: Vital Signs Temp Pulse Resp BP Pulse Ox 97.7 F 70 18 173/82 97 11/05/19 06:53 11/05/19 06:53 11/05/19 06:53 11/05/19 07:52 11/05/19 06:53 Period Temp Pulse Resp BP Sys/Martinez Pulse Ox Last 24 Hr 97.6 F-99.2 F 70-93 15- 129-188/67-89 94-99 Intake and Output 11/04/19 11/05/1911/04/20 21:59 05:59 13:59 Intake Total 240 50 Output Total 550 150 Balance -310 -100 Weight 53.07 kg Intake & Output: Intake & Output 11/04/19 11/05/19 11/05/19 21:59 05:59 13:59 Intake Total 240 50 Output Total 550 150 Balance -310 -100 Weight 53.07 kg Intake: Oral 240 50 Output: Void Amount 550 150 Other: Meal Dinner Percent of Meal Consumed 100% Feeding Ability Independent Urine Appearance Clear Urine Color Bright Yellow Urine Odor Normal Stool Size Moderate Stool Color Brown Stool Consistency Soft Exam: General: Alert, Awake, No acute Distress Eyes/N/T: EOMI, 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 Head/Neck: neck supple, normocephalic atraumatic CV: RRR, No murmurs, Pulm: Clear b/l, no wheezing/rhonchi/rales Abd: soft, nontender, +BS x4 Ext: no clubbing/cyanosis/edema Neuro: Alert, no focal deficits, moves all extremities, speech clear Skin: warm/dry Medical - PN: Obj Da - Labs CBC & Chem 7: 11/04/19 04:26 11/05/19 05:00 Labs: Abnormal Lab Results 11/05/19 11/05/19 11/04/19 05:00 05:00 04:26 WBC RBC Hgb Hct MCHC RDW Eos % (Auto) Lymph # (Auto) PT 16.5 H INR 1.3 H Sodium 130 L Carbon Dioxide 20 L Anion Gap 17.0 H BUN 33 H Creatinine 3.9 H 2.7 H Glucose 110 H Calcium 8.4 L 7.9 L Phosphorus Total Protein Globulin Triglycerides Non-HDL Cholesterol HDL Cholesterol 11/04/19 11/03/19 11/03/19 04:26 04:36 04:36 WBC 3.9 L 4.1 L RBC 3.05 L 3.24 L Hgb 9.2 L 9.7 L Hct 29.4 L 31.5 L MCHC 30.8 L RDW 14.8 H 15.0 H Eos % (Auto) 7.1 H 8.1 H Lymph # (Auto) 1.32 L 1.33 L PT INR Sodium Carbon Dioxide Anion Gap BUN 27 H Creatinine 3.7 H Glucose 131 H Calcium 8.2 L Phosphorus 5.9 H Total Protein 5.2 L Globulin 2.0 L Triglycerides 216 H Non-HDL Cholesterol 141 H HDL Cholesterol 31 L Meds: Medications Acetaminophen (Tylenol) 650 mg PO Q6HP PRN PRN Reason: PAIN/FEVER > 101 Albuterol/Ipratropium (Duoneb) 3 ml NEB Q4HP PRN PRN Reason: Shortness Of Breath Aspirin (Aspirin) 81 mg PO DAILY [facility] Last Admin: 11/05/19 07:48 Dose: 81 mg Documented by: Atorvastatin Calcium (Lipitor) 20 mg PO [facility] Last Admin: 11/04/19 21:10 Dose: 20 mg Documented by: Captopril (Capoten) 25 mg PO TuThSa@0800 [facility] Dextrose (Dextrose 50%) 0 ml IV UD PRN PRN Reason: Hypoglycemia Diagnostic Test (Pha) (Accu-Chek) 1 each FS ACHS [facility] Last Admin: 11/05/19 07:25 Dose: 1 each Documented by: Diltiazem HCl (Cardizem Cd) 180 mg PO SuMoWeFr@0900 [facility] Last Admin: 11/05/19 07:48 Dose: 180 mg Documented by: Docusate Sodium (Colace) 100 mg PO BID [facility] Last Admin: 11/05/19 07:48 Dose: 100 mg Documented by: Doxazosin Mesylate (Cardura) 4 mg PO [facility] Last Admin: 11/04/19 21:11 Dose: 4 mg Documented by: Famotidine (Pepcid) 20 mg PO [facility] Last Admin: 11/04/19 21:10 Dose: 20 mg Documented by: Gabapentin ([facility]urontin) [facility] Last Admin: 11/04/19 21:10 Dose: 100 mg Documented by: Glucose (Insta-Glucose) 15 gm PO PRN PRN PRN Reason: Hypoglycemia Hydralazine HCl (Apresoline) 10 mg IV Q2HP PRN PRN Reason: Hypertension sbp>200 Hydralazine HCl (Apresoline) 25 mg PO TuThSa@0800 PRN PRN Reason: 25 MG PO FOR BP >170/80 Last Admin: 11/05/19 07:52 Dose: 25 mg Documented by: Hydralazine HCl (Apresoline) 50 mg PO BID [facility] Last Admin: 11/05/19 07:47 Dose: 50 mg Documented by: Diltiazem HCl 125 mg/ Dextrose 125 mls @ 5 mls/hr IV Q12HP PRN; Protocol PRN Reason: TITRATE TO KEEP HR <100,SBP>90 Potassium Chloride 40 meq/ (Dextrose) 520 mls @ 130 mls/hr IV UD PRN PRN Reason: Potassium < 3 Magnesium Sulfate (Magnesium Sulfate) 2 gm in 50 mls @ 50 mls/hr IV UD PRN PRN Reason: Magnesium </= 1.6 Insulin Glargine (Lantus) 10 unit SQ DAILY [facility] Insulin Human Lispro (Humalog) 0 unit SQ ACHS [facility]; Protocol Last Admin: 11/05/19 07:26 Dose: Not Given Documented by: Labetalol HCl (Trandate) 10 mg IV Q2HP PRN PRN Reason: sbp>180 Metoprolol Tartrate (Lopressor) 5 mg IV Q2HP PRN PRN Reason: Tachyarrhythmias HR>110 Neomycin/Polymyxin/Dexamethasone (Maxitrol Ophth Oint) 1 ribbon OU BID [facility] Last Admin: 11/04/19 21:24 Dose: Not Given Documented by: Ondansetron HCl (Zofran) 4 mg IV Q4HP PRN PRN Reason: Nausea And Vomiting Polyethylene Glycol (Miralax) 17 gm PO DAILYP PRN PRN Reason: Constipation Potassium Chloride (Kdur) 40 meq PO UD PRN PRN Reason: Potssium is 3-3.5 Potassium Chloride (Kdur) 40 meq PO UD PRN PRN Reason: Potassium < 3 Senna (Senokot) 2 tab PO DAILYP PRN PRN Reason: Constipation Sodium Chloride (Saline Flush) 10 ml IV Q8 [facility] Last Admin: 11/05/19 07:25 Dose: 10 ml Documented by: Warfarin Sodium (Coumadin Per Pharmacy) 1 order PO UD [facility] Medical - PN: A/P - Time Spent With Patient Total time spent is greater than 50% in coordination of care (as documented) at patient's floor/unit and/or counseling patient: - Narrative A/P Narrative: A: *Acute left frontoparietal CVA: Timing uncertain, possibly 18-19th per [facility] ED visit on for HTN -carotid u/s no stenosis -echo no thrombus *PAF with AFib RVR: Was unwilling to be placed on anticoagulation last hospitalization April 2019 while at [facility] per notes: -now amenable to anticoagulation -converted to back to sinus *ESRD: *Anemia, chronic *DM w/neuropathy: *HTN: *Anxiety: *GERD: *hyponatremia: P: -started warfarin -ASA until anticoag started/Statin -cont home oral diltiazem -cont home ACEI/Hydralazine. -Nephro for HD -home basal and SSI -bedside swallow eval unremarkable -pt/ot -ppx: warfarin per pharm/home ppi full code Medical - PN: Qual - Stroke Symptom Onset Unknown: Yes
[2019-11-05] MEDS ORDERED: ASPIRIN 81 MG TAB.CHEW PO SCH (09:00)
[2019-11-05] MEDS ORDERED: DILTIAZEM 180 MG CAP.XL.24H PO SCH (09:00)
--- NOTE | 2019-11-05 09:06 | Discharge Summary ---
Medical - DS: Prov Patient information: Note initiated : 11/05/19 at 9:04 am Service Date, if different from initiated Date: [] Patient: Elvia Garcia 84 y/o F admitted on 11/02/19 for Dialysis. Chief Complaint: [] Date of admission: 11/02/19 20:45 Discharge date: 11/06/19 Primary care physician: Rubina White Medical - DS: Meds - Discharge Medications Prescriptions: Warfarin [Coumadin] 2 mg PO DAILY #30 tablet Atorvastatin [Lipitor] 10 mg PO HS #20 tab Metoprolol Succinate [Toprol Xl] 50 mg PO DAILY #30 tab.xl.24h Active and Home Medications: Home Medications docusate sodium 100 mg capsule 100 mg PO BID 02/15/18 [History Confirmed 11/03/19 Last Taken 11/01/19] pen needle, diabetic 31 gauge x 3/16" See Rx Instructions .ROUTE .MEDSUPPLY #100 each 04/06/19 [Rx Confirmed 05/09/19 Last Taken Unknown] gabapentin 100 mg capsule 100 mg PO QHS #90 cap 05/04/19 [Rx Confirmed 11/03/19 Last Taken 11/01/19] Vit C/Vit E AC/Lut/Copper/Zinc [Preservision Lutein Softgel] 1 cap PO BID 05/05/19 [History Confirmed 11/03/19 Last Taken 11/01/19] ondansetron 4 mg disintegrating tablet 4 mg PO Q6H PRN #10 tab 05/16/19 [Rx Confirmed 11/03/19 Last Taken 10/31/19] cholecalciferol (vitamin D3) 125 mcg (5,000 unit) disintegrating tablet See Rx Instructions PO .COMPLEX #90 tab 07/26/19 [Rx Confirmed 11/03/19 Last Taken 11/01/19] meloxicam 7.5 mg tablet 7.5 mg PO QDAY #30 tab 09/20/19 [Rx Confirmed 11/03/19 Last Taken 11/01/19] Insulin Detemir [Levemir] 10 unit SQ QAM 10/02/19 [History Confirmed 11/03/19 Last Taken 11/01/19] captopril 25 mg tablet 25 mg PO .qTTS before dialysis #30 tab 11/01/19 [Rx Confirmed 11/02/19 Last Taken Unknown] diltiazem HCl 180 mg capsule,extended release 24 hr 180 mg PO QMWFSU #90 cap 11/01/19 [Rx Confirmed 11/03/19 Last Taken 11/02/19 10:00] hydralazine 25 mg tablet 50 mg PO .COMPLEX #240 tab 11/01/19 [Rx Confirmed 11/03/19 Last Taken 11/01/19] Doxazosin Mesylate [Cardura] 4 mg PO QHS 11/03/19 [History Confirmed 11/03/19 Last Taken 11/01/19] Nate/Polymyx B Sulf/Dexameth [Maxitrol Eye Drops] 1 gtt OU BID 11/03/19 [History Confirmed 11/03/19 Last Taken 11/02/19] Home Medications docusate sodium 100 mg capsule 100 mg PO BID 02/15/18 [History Confirmed 11/03/19 Last Taken 11/01/19] pen needle, diabetic 31 gauge x 3/16" See Rx Instructions .ROUTE .MEDSUPPLY #100 each 04/06/19 [Rx Confirmed 05/09/19 Last Taken Unknown] gabapentin 100 mg capsule 100 mg PO QHS #90 cap 05/04/19 [Rx Confirmed 11/03/19 Last Taken 11/01/19] Vit C/Vit E AC/Lut/Copper/Zinc [Preservision Lutein Softgel] 1 cap PO BID [History Confirmed 11/03/19 Last Taken 11/01/19] ondansetron 4 mg disintegrating tablet 4 mg PO Q6H PRN #10 tab 05/16/19 [Rx Confirmed 11/03/19 Last Taken 10/31/19] cholecalciferol (vitamin D3) 125 mcg (5,000 unit) disintegrating tablet See Rx Instructions PO .COMPLEX #90 tab 07/26/19 [Rx Confirmed 11/03/19 Last Taken 11/01/19] Insulin Detemir [Levemir] 10 unit SQ QAM 10/02/19 [History Confirmed 11/03/19 Last Taken 11/01/19] captopril 25 mg tablet 25 mg PO .qTTS before dialysis #30 tab 11/01/19 [Rx Confirmed 11/02/19 Last Taken Unknown] Nate/Polymyx B Sulf/Dexameth [Maxitrol Eye Drops] 1 gtt OU BID 11/03/19 [History Confirmed 11/03/19 Last Taken 11/02/19] Atorvastatin [Lipitor] 10 mg PO HS #20 tab 11/05/19 [Rx Last Taken Unknown] Metoprolol Succinate [Toprol Xl] 50 mg PO DAILY #30 tab.xl.24h 11/06/19 [Rx Last Taken Unknown] Warfarin [Coumadin] 2 mg PO DAILY #30 tablet 11/06/19 [Rx Last Taken Unknown] Medical - DS: Hosp Hospital Course: Ms. Garcia is a 84 year old F Who presented to [facility] for an MRI there is ordered by her sole leveler machine Dr. Sethi. She had a history of hypertension followed by hypotension. During his episode she has poor responsiveness. Per the family this seems to be the reason why the MRI was ordered. MRI revealed a left hemispheric stroke frontoparietal region. Timing of stroke is uncertain although she was seen in [facility] ED on the for elevated blood pressure. Did not present up with any neurological findings at that time it seems. Patient denies any focal numbness or weakness or speech difficulties. No chest pain shortness of breath fever chills. She was transferred over to [facility] with the ability to have dialysis. Patient very pleasant female. I did discuss with her past notes of atrial fibrillation and likely need for anticoagulation. She has no acute complaints. 11/02 Patient did develop A. fib RVR last night was put on diltiazem drip and then converted several hours later. No other events overnight. Patient getting dialysis today. Patient denies any focal weakness or numbness or speech difficulties. 11/03 Sleeping well. No overnight events or new complaints. Sinus rhythm. 11/04 Getting dialysis this morning. No overnight events other than a brief episode of a flutter converted back. Likely discharge in the morning. Echo unremarkable. 11/05 No overnight events or new complaints. Patient stable for discharge. Further blood pressure medication adjustments per nephrology. A: *Acute left frontoparietal CVA: Timing uncertain, possibly - per [facility] ED visit on for HTN -carotid u/s no stenosis -echo no thrombus *PAF with AFib RVR: Was unwilling to be placed on anticoagulation last hospitalization April 2019 while at [facility] per notes: -now amenable to anticoagulation -converted to back to sinus *ESRD: *Anemia, chronic *DM w/neuropathy: *HTN: *Anxiety: *GERD: Discharge diagnosis: Acute left frontal parietal CVA ischemic A. fib RVR Secondary discharge diagnosis: End-stage renal disease anemia diabetes hypertension anxiety GERD - Time Spent with Patient Total time spent providing and/or coordinating discharge services: Greater than 30 minutes Medical - DS: Exam - Constitutional Vitals: Vital Signs Temp Pulse Pulse Resp BP BP Pulse Ox 11/05/19 09:00 90 153/81 11/05/19 08:45 80 157/81 11/05/19 08:30 80 170/98 11/05/19 08:15 97.5 F 80 172/96 11/05/19 07:52 173/82 11/05/19 06:53 97.7 F 70 18 174/78 97 11/05/19 04:09 97.6 F 75 16 181/81 96 11/04/19 23:03 98.3 F 83 20 188/89 95 11/04/19 19:14 98.1 F 82 18 129/73 94 11/04/19 16:00 99.2 F H 82 18 177/74 94 11/04/19 14:42 97.6 F 20 168/67 11/04/19 14:01 88 21 166/73 95 11/04/19 14:00 88 21 95 11/04/19 13:01 18 167/87 11/04/19 12:01 22 173/71 11/04/19 11:01 20 171/85 11/04/19 10:32 16 174/70 Intake and Output 11/04/19 11/05/19 11/05/19 21:59 05:59 13:59 Intake Total 240 50 Output Total 550 150 100 Balance -310 -100 -100 Intake: Oral 240 50 Output: Void Amount 550 150 100 Other: Meal Dinner Percent of Meal Consumed 100% Feeding Ability Independent Urine Appearance Clear Urine Color Bright Yellow Pale Urine Odor Normal Normal Stool Size Moderate Stool Color Brown Stool Consistency Soft Weight 53.07 kg Medical - DS: Data Labs on day of discharge: Labs from last 24 hours 11/05/19 11/05/19 05:00 05:00 PT 16.5 H INR 1.3 H Sodium 141 Potassium 4.1 Chloride 104 Carbon Dioxide 20 L Anion Gap 17.0 H BUN 33 H Creatinine 3.9 H GFR Calculation 10 Glucose 110 H Calcium 8.4 L Medical - DS: A/P - Patient/Caregiver Discharge Instructions Activity: increase activity as tolerated Diet: Renal/Consistent Carbs Additional Instructions: f/u with PCP 3-7 days Increase activity as tolerated. Continue Renal Carb Consistant Diet Prescriptions: Warfarin [Coumadin] 2 mg PO DAILY #30 tablet Atorvastatin [Lipitor] 10 mg PO HS #20 tab Metoprolol Succinate [Toprol Xl] 50 mg PO DAILY #30 tab.xl.24h - Follow up Plan Follow up with: Rubina White MD [Primary Care Provider] - 11/11/21 9:45 am Disposition: Home, Self-Care Care Plan Goals: This discharge packet is provided to you to help keep you informed about your care. We want to ensure you get everything you need when you go home. You will also be receiving a call from us in a few days to follow up with you and see how you are doing since your discharge. This gives us a chance to listen to any concerns you maybe experiencing since you were discharged or any additional needs you may have, as well as providing us feedback on your care experience. We strive to always provide excellent care and thank you for your feedback and for choosing [facility]. Prognosis: Fair Rehab Potential: Fair Overall status at discharge: patient is back to baseline
--- NOTE | 2019-11-05 09:09 | Nephrology Progress Note ---
Subjective Patient information: Note initiated : 11/05/19 at 9:00 am Service Date, if different from initiated Date: [] Patient: Elvia Garcia 84 y/o F admitted on 11/02/19 for Dialysis. Chief Complaint: [] Principal diagnosis: Left fronto-parietal CVA Interval history: The patient was seen and evaluated on dialysis. Her issues revolve around labile blood pressure. She has some evidence of remaining mediated hypertension based on the fact that her blood pressure will rise during dialysis. She also has atrial fibrillation but has not been treated with an anticoagulation therapy due to her age, hemodialysis status, and fall risk. On November 01 her blood pressure ranged from 140/70 at the onset of dialysis to as high as 185/80, and as her watch assembly instructor had instructed the daughter to relay is the message that she was to received hydralazine 25 mg if her blood pressure ordered go above 160 on dialysis. This was administered twice and the patient had no focal motor signs on dialysis but did have a decreased level of communication with the staff but would still respond appropriately. According to her daughter she really had a headache and nausea and vomiting at home and an outpatient MRI was arranged for the suspicion of PRES. due to technical difficulties, the MRI could not be performed at [facility] and was ordered and performed at around 6 PM on Tuesday the , results below. Selected Entries 11/05/19 08:15 11/05/19 08:30 11/05/19 08:45 Temperature 36.4 C Pulse Rate 80 80 80 Blood Pressure 172/96 170/98 157/81 11/05/19 09:00 Temperature Pulse Rate 90 Blood Pressure 153/81 Laboratory Results - last 48 hr 11/04/19 11/04/19 11/04/19 04:26 04:26 04:26 WBC 3.9 L RBC 3.05 L Hgb 9.2 L Hct 29.4 L MCV 96.4 MCH 30.2 MCHC 31.3 RDW 14.8 H Plt Count 150 MPV 9.4 Gran % 48.4 Lymph % (Auto) 33.6 [place] % (Auto) 10.4 Eos % (Auto) 7.1 H Baso % (Auto) 0.5 Gran # 1.90 Lymph # (Auto) 1.32 L [place] # (Auto) 0.41 Eos # (Auto) 0.28 Baso # (Auto) 0.02 PT 13.4 INR 1.0 Sodium 130 L Potassium 4.1 Chloride 98 Carbon Dioxide 22 Anion Gap 10.0 BUN 17 Creatinine 2.7 H GFR Calculation 15 Glucose 97 Calcium 7.9 L 11/05/19 11/05/19 05:00 05:00 WBC RBC Hgb Hct MCV MCH MCHC RDW Plt Count MPV Gran % Lymph % (Auto) [place] % (Auto) Eos % (Auto) Baso % (Auto) Gran # Lymph # (Auto) [place] # (Auto) Eos # (Auto) Baso # (Auto) PT 16.5 H INR 1.3 H Sodium 141 Potassium 4.1 Chloride 104 Carbon Dioxide 20 L Anion Gap 17.0 H BUN 33 H Creatinine 3.9 H GFR Calculation 10 Glucose 110 H Calcium 8.4 L Renal Bx in 2019: Carotid Doppler: IMPRESSION: Both common, internal and external carotid arteries are widely patent. Mixed fibrofatty calcific plaque seen within both carotid bifurcations. Antegrade flow present in both vertebral arteries Echo result pending. Pertinent ROS: Stable on HD Additional PMFSH (Level 3 Only): N/A Objective - Vital Signs Vital signs: Vital Signs Temp Pulse Pulse Resp BP BP Pulse Ox 11/05/19 08:45 80 157/81 11/05/19 08:30 80 170/98 11/05/19 08:15 36.4 C 80 172/96 11/05/19 07:52 173/82 11/05/19 06:53 36.5 C 70 18 174/78 97 11/05/19 04:09 36.4 C 75 16 181/81 96 11/04/19 23:03 36.8 C 83 20 188/89 95 11/04/19 19:14 36.7 C 82 18 129/73 94 11/04/19 16:00 37.3 C H 82 18 177/74 94 11/04/19 14:42 36.4 C 20 168/67 11/04/19 14:01 88 21 166/73 95 11/04/19 14:00 88 21 95 11/04/19 13:01 18 167/87 11/04/19 12:01 22 173/71 11/04/19 11:01 20 171/85 11/04/19 10:32 16 174/70 11/04/19 09:01 93 H 15 182/72 99 Intake and Output 11/04/19 11/05/19 11/05/19 21:59 05:59 13:59 Intake Total 240 50 Output Total 550 150 100 Balance -310 -100 -100 Intake: Oral 240 50 Output: Void Amount 550 150 100 Other: Meal Dinner Percent of Meal Consumed 100% Feeding Ability Independent Urine Appearance Clear Urine Color Bright Yellow Pale Urine Odor Normal Normal Stool Size Moderate Stool Color Brown Stool Consistency Soft Weight 53.07 kg Intake & Output: Intake & Output 11/04/19 11/05/19 11/05/19 21:59 05:59 13:59 Intake Total 240 50 Output Total 550 150 100 Balance -310 -100 -100 Weight 53.07 kg Intake: Oral 240 50 Output: Void Amount 550 150 100 Other: Meal Dinner Percent of Meal Consumed 100% Feeding Ability Independent Urine Appearance Clear Urine Color Bright Yellow Pale Urine Odor Normal Normal Stool Size Moderate Stool Color Brown Stool Consistency Soft - General Appearance General appearance: cachectic, chronically ill, frail EENT: ATNC (Left eye reddened from intra-occular EtOH to cause ischemia and decr ease IOP) Neck: no JVD, no thyromegaly, no carotid bruit, supple Respiratory: kyphosis, clear Cardiology: no murmurs, no rub, regular rate, regular rhythm, normal S1, normal S2 Gastrointestinal: normoactive bowel sounds Integumentary: no rash, warm and dry Neurologic: no focal deficit (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 Long acting B-kalie 2. Short acting ACEi 3. Stop Hydralazine and doxazosin 4. Titrate #1 and #2 as needed 5. PRN vasotec and metoprolol ordered. Status: Acute Comment: Question railed by Dr Amadeo Tamez, was planning implantable recorder but will foward ECG with beautiful flutter waves captured. (2) Cerebrovascular accident (CVA) involving anterior circulation of left side 1. Permissive HTN up to now, now start to adjust simple regiment as possible (ACEi and B-Blockers) to control BP 2. I'm not a fan of warfarin in ESRD, elderly and fall risk but she did have a CVA in setting of labile BP and a flutter...so lets cvontinue with a low goal. 3. Home health, PT, OT do not send to an LTAC, SNF or NH. Status: Acute (3) Allergic eosinophilia Suspect hydralazine>doxazosin...started before captopril Status: Acute Comment: Suspect hydralazine based on temporal relationship and commonly implicated Rx (4) ESRD (end stage renal disease) on dialysis HD q MWF Status: Chronic Priority: Medium
[2019-11-05] MEDS: INSULIN GLARGINE, HUMAN 1 UNIT/0.01 ML SQ SCH (10:00)
[2019-11-05] MEDS: NEO/POLYMYX B SULF/DEXAMETH 1 RIBBON OINT.OPHTH OU SCH ×2 (10:01→20:59)
[2019-11-05] MEDS ORDERED: ENALAPRILAT 1.25 MG/ML VIAL IV PRN (13:56)
[2019-11-05] MEDS ORDERED: WARFARIN 3 MG TABLET PO ONE (15:00)
[2019-11-05] MEDS ORDERED: CAPTOPRIL 12.5 MG TABLET PO SCH (15:00)
[2019-11-05] MEDS ORDERED: CAPTOPRIL 12.5 MG TABLET ONE ×2 (15:57→20:52)
[2019-11-05] MEDS: CAPTOPRIL 12.5 MG TABLET PO SCH ×2 (15:58→20:52)
[2019-11-05] MEDS ORDERED: ENALAPRILAT 1.25 MG/ML VIAL IV ONE (19:48)
[2019-11-05] MEDS: ATORVASTATIN 20 MG TABLET PO SCH (20:52)
[2019-11-05] MEDS: FAMOTIDINE 20 MG TABLET PO SCH (20:52)
[2019-11-05] MEDS: GABAPENTIN 100 MG CAPSULE PO SCH (20:52)
[2019-11-06] MEDS: 0.9 % SODIUM CHLORIDE 10 ML SYRINGE IV SCH (07:21)
[2019-11-06] MEDS: INSULIN LISPRO 1 UNIT/0.01 ML UNIT SQ SCH ×2 (07:21→11:08)
[2019-11-06] MEDS ORDERED: CAPTOPRIL 12.5 MG TABLET PO SCH (08:00)
[2019-11-06] MEDS: NEO/POLYMYX B SULF/DEXAMETH 1 RIBBON OINT.OPHTH OU SCH ×2 (08:59→09:31)
[2019-11-06] MEDS: CAPTOPRIL 12.5 MG TABLET PO SCH (08:59)
[2019-11-06] MEDS ORDERED: METOPROLOL SUCCINATE 50 MG TAB.XL.24H PO SCH (09:00)
[2019-11-06] MEDS: DOCUSATE SODIUM 100 MG CAPSULE PO SCH (09:00)
[2019-11-06] MEDS: INSULIN GLARGINE, HUMAN 1 UNIT/0.01 ML SQ SCH (09:14)
== END 2019-11-06 11:50 | disposition home or self-care (01) | DRG 682 ==
LOC: ICU 20:45 → MEDSUR 11-04 14:45
PROVIDERS: ADMIT Internal Medicine; ATTEND Internal Medicine